=== PATIENT | male | born 1950 | race Caucasian/White ===

== ENCOUNTER → 2018-01-09 07:59 | Outpatient (CLI) | payer MEDICARE, OTHER, SELFPAY ==
--- NOTE | 2018-01-09 08:03 | DI.RAD.S_ITS ---
PROCEDURE: PAIN L INTERLAMINAR/CAUDAL INJ INDICATIONS: multi level spinal stenosis FINDINGS: Fluoroscopic spot filming was performed to verify placement of spinal needles at the midline interlaminar notch at L4-5 level, as also labeled on the films. Appropriate location(s) of the needle tip(s) was confirmed by injection of iodinated contrast. IMPRESSION: Successful L4-5 posterior midline interlaminar notch caudal injection. Dictated by: Luigi Miguel M.D. on 01/09/2018 at 9:49 Approved by: Luigi Miguel M.D. on 01/09/2018 at 9:54
[2018-01-09 09:06] VITALS: BP 138/91; PULSE 68; RESP 16; O2SAT 100
[2018-01-09 09:08] VITALS: BP 138/90; PULSE 63; RESP 11; TEMP 36.1; O2SAT 100
[2018-01-09 09:18] VITALS: BP 120/79; PULSE 71; RESP 16; O2SAT 100
[2018-01-09 09:21] VITALS: BP 123/79; PULSE 68; RESP 15; O2SAT 100
[2018-01-09 09:26] VITALS: BP 117/81; PULSE 71; RESP 17; O2SAT 100
--- NOTE | 2018-01-09 09:28 | PM.PROC.1 ---
Procedures Date/Time Date of procedure: 01/09/18 Time of procedure: 09:29
--- NOTE | 2018-01-09 09:54 | P.PCN_ITS ---
Procedures Date/Time Date of procedure: 01/09/18 Time of procedure: 09:54 General Procedure description: PATIENT: Mansoor Teixeira DATE OF : 1950 DATE OF SURGERY: 01/09/2018 PROVIDER: Nick Fields DO Operative Note PREOP DIAGNOSIS 1. HNP WITH RADICULAR FEATURES, 2. MULTILEVEL CENTRAL STENOSIS, POST OP DIAGNOSIS 1. HNP WITH RADICULAR FEATURES, 2. MULTILEVEL CENTRAL STENOSIS, PROCEDURES 1. FLUORSCOPICALLY GUIDED CONTRAST CONTROLLED INTERLAMINAR EPIDURAL STEROID INJECTION - L5/S1 PHYSICIAN: Nick Fields DO INDICATIONs: Mansoor is referred by Dr. Tapia for treatment of Bilateral Foraminal Stenosis R >L LE symptoms. FINDINGS Multilevel Central Spinal Stenosis with Nerve Root Compression DESCRIPTION OF PROCEDURE Fluoroscopically guided, contrast-controlled L5/S1 translaminar epidural steroid injection. Following denial of allergy and review of potential side effects and complications, including, but not necessarily limited to, infection, allergic reaction, local tissue breakdown, temporary as well as permanent nerve injury, paralysis, stroke and possible , the patient indicated that the patient understood and agreed to proceed. An informed consent document was signed by the patient, witnessed by a nurse, and placed in the patient's chart. Additionally, other treatment options including modalities, medications, and physical therapy were reviewed with the patient. Per the patient request, IV conscious sedation was administered via 3mg of Versed to patient comfort. The patient's vital signs were monitored throughout the procedure by both the nurse and the physician without significant fluctuation. The patient remained conversant throughout the procedure. In the prone position, following sterile prep and drape of the lumbar region, the L5/S1 translaminar space was identified fluoroscopically. The skin was anesthetized via a 25-gauge, 1.5-inch needle with 1% lidocaine solution. At this point, a 22-gauge short bevel spinal needle was atraumatically introduced and advanced under fluoroscopic guidance into the region of the L4/5 translaminar space. Depth was confirmed on lateral view. Radiological data, including multiple fluoroscopic views of the lumbar spine, reveal a spinal needle at the L5/S1 translaminar space. Lateral views then show placement of the needle in the epidural space. Subsequent views show contrast material flowing superiorly and inferiorly in the epidural space. No vascular or intrathecal uptake is observed. At this point, using loss of resistance technique with saline and air, the epidural space was entered. This was confirmed following negative aspiration with injection of approximately 1.5 cc of Isovue 200, showing excellent epidural flow without vascular or intrathecal uptake. At this point, 1 cc of 1 % lidocaine solution combined with 3 cc or 20 mg of dexamethasone and 80mg Depo medrol was injected without incident. The patient was then transferred to the recovery area where they were observed for an appropriate period of time after the injection. The patient reported a VAS score of 6 prior to the procedure and a post-procedure VAS of 0. Total Fluoroscopy Time: 11.8 seconds, 8.99 mGy Total Conscious Sedation Time: 24min POST OP INSTRUCTIONS The patient was provided a Pain Log to continue to record their response to the target-specific procedure prior to follow-up visit with their referring physician. Additionally, specific post-injection care instructions and a contact number to our office were provided if concerns arise regarding possible complications associated with the procedure are suspected. Nick Fields DO
== END ==
PROVIDERS: PCP Family Medicine; Visit Provider Physical Medicine & Rehabilitation
DX: M48.061 Spinal stenosis, lumbar region without neurogenic claudication (principal); M46.96 Unspecified inflammatory spondylopathy, lumbar region; M51.26 Other intervertebral disc displacement, lumbar region
CPT/HCPCS: 62323; 99152; J1040; J1100; J2250

== ENCOUNTER 2019-02-24 10:26 | Emergency (ER) | payer MEDICARE, OTHER, SELFPAY ==
[2019-02-24] VITALS (11 sets, daily range): BP systolic 106–159; BP diastolic 56–107; PULSE 82–111; RESP 17–31; TEMP 37.9–39.9; O2SAT 94–100
--- NOTE | 2019-02-24 10:40 | DI.RAD.S_ITS ---
PROCEDURE: XR CHEST 1V INDICATIONS: suspected sepsis TECHNIQUE: One view of the chest was acquired. COMPARISON: None. FINDINGS: Surgical changes and devices: Median sternotomy and CABG changes. Lungs and pleura: Asymmetric right hemidiaphragm eventration. Given this, the visible lung hunter are clear.. No pleural effusions or pneumothorax. Mediastinum: Mediastinal contours appear normal. Heart size is normal. Bones and chest wall: No suspicious bony lesions. Overlying soft tissues appear unremarkable. IMPRESSION: No acute cardiopulmonary disease. Post CABG. Dictated by: Jihan Torrez M.D. on 02/24/2019 at 11:12 Approved by: Jihan Torrez M.D. on 02/24/2019 at 11:13
[2019-02-24] MEDS: SODIUM CHLORIDE 0.9% 1,000 ML 1000 ML IV ×2 (11:24→14:41)
[2019-02-24 11:28] LABS: Add Manual Diff / Slide Review NO; Basophils Absolute Auto 0 /uL (0-100); Basophils Percent Auto 0.3 % (0-2); Eosinophils Absolute Auto 0 /uL (0-450); Eosinophils Percent Auto 0.2 % (2-4); Hematocrit 44.4 % (41-53); Hemoglobin 14.8 g/dL (13.5-17.5); Lymphocytes Absolute Auto 600 /uL (1100-4500); Mean Corpuscular HGB Conc 33.3 % (30-36); Mean Corpuscular Hemoglobin 30.9 PG (26-34); Mean Corpuscular Volume 92.8 fL (80-100); Monocytes Absolute Auto 300 /uL (0-900); Monocytes Percent Auto 2.7 % (3-14); Neutrophils Absolute Auto 9100 /uL (1500-7000); Neutrophils Percent Auto 90.8 % (50-75); Platelet Count 249 X10^3/uL (150-400); Red Blood Cell Count 4.78 X10^6/uL (4.5-5.9); Red Cell Distribution Width 14.1 % (11.6-14.8)
[2019-02-24 11:40] LABS: INR 0.9 (0.9-1.3); Prothrombin Time 10.9 SECONDS (10.1-12.7)
[2019-02-24 11:42] LABS: PTT Partial Thromboplastin Tim 27 SECONDS (26.4-36.2)
[2019-02-24 11:45] LABS: Lactate (Lactic Acid) 2.4 mmol/L (0.7-2.1)
[2019-02-24 11:45] LABS: Alanine Aminotransferase 19 IU/L (21-72); Albumin 4.2 g/dL (3.5-5.0); Albumin Globulin Ratio 1.3 (1.0-2.8); Alkaline Phosphatase 68 U/L (38-126); Aspartate Aminotransferase 26 IU/L (17-59); BUN Creatinine Ratio 35.7 (6-22); Bilirubin Total 0.9 mg/dL (0.2-1.3); Blood Urea Nitrogen 25 mg/dL (9-20); Calcium 9.6 mg/dL (8.4-10.2); Carbon Dioxide 25 mmol/L (22-32); Chloride 103 mmol/L (98-107); Estimated Glomerular Filt Rate > 60.0 mL/min (>60); Globulin 3.3 g/dL (1.7-4.1); Glucose 89 mg/dL (80-110); HEMOLYSIS 41 (0-50); Lipase 52 U/L (23-300); Potassium 4.4 mmol/L (3.4-5.1); Sodium 140 mmol/L (137-145); Total Protein 7.5 g/dL (6.3-8.2)
[2019-02-24 11:56] LABS: RBC Urine None Seen (0-5/HPF)
[2019-02-24 12:00] LABS: Procalcitonin 0.15 ng/mL (<0.5)
[2019-02-24 12:06] LABS: Bacteria Urine Occasional (0-1); Culture Indicated Urine Cult Not Indicated; WBC Urine 5-10/HPF (0-5/HPF)
--- NOTE | 2019-02-24 12:15 | ED.FEVER ---
HPI - Fever General Chief Complaint: Fever Stated Complaint: Has the shakes Time Seen by Provider: 02/24/19 11:46 Source: patient Mode of arrival: ambulatory Limitations: no limitations History of Present Illness HPI Narrative: Patient comes emergency department with his complaining of shaking chills this morning and just ?not feeling well?. The patient had a an episode of vomiting this morning after eating breakfast, and also had some episodes of diarrhea. He states he has mild left lower quadrant abdominal pain. No blood in his stools. Patient does have a history of diverticulitis. Patient has not had any dysuria. No cough or shortness of breath. No sore throat or ear pain. No other complaints at this time. Related Data Home Medications Medication Instructions Recorded Confirmed melatonin 3 mg tablet 3 mg PO BEDTIME PRN 01/03/18 02/24/19 omega-3 fatty acids 1,000 mg 1,000 mg PO DAILY 01/03/18 02/24/19 capsule omeprazole 20 mg capsule,delayed 20 mg PO DAILY 01/03/18 02/24/19 release pravastatin 80 mg tablet 80 mg PO BEDTIME 01/03/18 02/24/19 acetaminophen 650 mg PO PRN PRN 02/24/19 02/24/19 diclofenac sodium [Voltaren] 1 applic TOPICAL PRN PRN 02/24/19 02/24/19 prednisone 2 mg PO DAILY 02/24/19 02/24/19 prednisone 5 mg PO DAILY 02/24/19 02/24/19 Previous Rx's Medication Instructions Recorded levofloxacin [Levaquin] 500 mg PO DAILY #30 tab 02/24/19 metronidazole [Flagyl] 500 mg PO Q12H #30 tab 02/24/19 ondansetron 4 mg PO Q6H PRN #14 tab 02/24/19 Allergies Allergy/AdvReac Type Severity Reaction Status Date / Time No Known Allergies Allergy Verified 01/15/18 17:39 BRYANT Inhibitors AdvReac dry cough Verified 01/15/18 17:39 Review of Systems Constitutional Denies chills, Reports fever(s), Denies lethargy and Denies weakness Eyes Denies change in vision, Denies eye discharge, Denies irritation and Denies loss of vision ENT Ears, Nose, Mouth, and Throat: Denies change in voice, Denies neck pain and Denies sore throat Cardiovascular Denies chest pain, Denies irregular heart rhythm, Denies lightheadedness, Denies palpitations, Denies dyspnea, Denies dyspnea on exertion and Denies orthopnea Respiratory Denies cough, Denies dyspnea, Denies dyspnea on exertion and Denies wheezing Gastrointestinal Gastrointestinal: Reports abdominal pain (Left lower quadrant), Denies change in bowel habits, Reports diarrhea, Reports nausea and Reports vomiting Genitourinary Denies hematuria, Denies flank pain, Denies urinary incontinence and Denies urinary urgency Musculoskeletal Denies neck pain Integumentary/Breasts Denies pruritus, Denies erythema, Denies rash and Denies wounds Neurologic Denies confusion, Denies loss of vision and Denies weakness Psychiatric Denies anxiety, Denies confusion, Denies depression, Denies homicidal ideation and Denies suicidal ideation Endocrine Denies palpitations Hematologic/Lymphatic Denies easy bruising Allergic/Immunologic Denies wheezing [facility] Medical History Arthritis (Acute) Coronary heart disease (Acute) Heart disease (Acute) Inflammatory bowel disease (Acute) Surgical History History of surgery to heart and great vessels (Acute) Family History Mother Heart disease Stroke Heart attack Father Heart disease Melanoma Social History Smoking Status: Never smoker Family History Mother Heart disease Stroke Heart attack Father Heart disease Melanoma Social History Smoking Status: Never smoker Exam Initial Vital Signs Initial Vital Signs: Vital Signs Temperature 100.9 F H 02/24/19 10:38 Pulse Rate 99 H 02/24/19 10:38 Respiratory Rate 18 02/24/19 10:38 Blood Pressure 159/107 H 02/24/19 10:38 Pulse Oximetry 99 02/24/19 10:38 Const General: cooperative and well developed Nutritional Appearance: well nourished Orientation: alert, awake, oriented x3 and not confused [facility] Head: normocephalic and atraumatic Ears: external ears normal Nose: external nose normal and No nasal discharge Face and sinus: face symmetric and No dry mucous membranes Mouth: oral mucosae normal and moist mucous membranes Teeth and gingiva: dentition normal Eyes General: appearance normal, both eyes and all related structures Eyelids: eyelids normal Conjunctivae: conjunctivae normal Sclera: sclerae normal Pupils: PERRL EOM: EOM intact bilaterally Neck Neck: normal visual inspection, trachea midline, No lymphadenopathy, No midline deformity and No JVD Lymphatic: No lymphedema Chest Chest: normal inspection of the chest Resp Effort & Inspection: normal respiratory effort, able to speak in complete sentences, no respiratory distress and no use of accessory muscles Auscultation: clear to auscultation bilaterally, no rales, no rhonchi and no wheezes Cardio Rate: regular rate Rhythm: regular rhythm Heart Sounds: no click, no gallops, no murmurs and no rubs Pulses: normal peripheral pulses GI Inspection: non-distended Palpation: soft, no hepatosplenomegaly, No guarding, No pulsatile mass and No tender Auscultation: normal bowel sounds Back/Spine/Pelvis Back: No CVA tenderness Cervical Spine: cervical ROM normal and No pain with cervical ROM Thoracic/Lumbar Spine: thoracic and lumbar spine normal to inspection Skin General: no rashes or lesions noted, No jaundice and No petechiae Other: Skin is hot. Neuro General: alert, oriented x3, gait normal and no focal motor deficits Speech: speech normal Extrem General: full ROM, no clubbing, cyanosis or edema, no pedal edema and no calf tenderness Psych Appearance: well kempt Mental Status: mental status grossly normal Attitude: cooperative Thought Content: normal and suicidality Judgment: judgment good Course Course Narrative: Patient was treated with IV fluids, Zofran, and Tylenol, and worked up with labs, urinalysis, and chest x-ray. All of these were found to be unremarkable. Influenza test was negative. He was sent for CT scan of the abdomen and pelvis, in regard to his fever and left lower quadrant pain and tenderness, and was found to have diverticulitis without abscess or perforation. Patient was given Levaquin and Flagyl in the emergency department, and was found to be feeling much better. We have discussed home management of the symptoms, as well as the usual indications for return. Orders Ordered: Discontinued Medications Acetaminophen (Tylenol) 975 mg PO NOW ONE Stop: 02/24/19 13:03 Last Admin: 02/24/19 13:48 Dose: 975 mg Sodium Chloride (Normal Saline 0.9%) 1,000 mls @ 1,000 mls/hr IV BOLUS ONE Stop: 02/24/19 11:39 Last Infusion: 02/24/19 14:41 Dose: 0 mls/hr Admin: 02/24/19 11:24 Dose: 1,000 mls/hr Sodium Chloride (Normal Saline 0.9%) 1,000 mls @ 1,000 mls/hr IV BOLUS ONE Stop: 02/24/19 13:15 Last Infusion: 02/24/19 15:54 Dose: 0 mls/hr Admin: 02/24/19 14:41 Dose: 1,000 mls/hr Ibuprofen (Advil) 400 mg PO NOW ONE Stop: 02/24/19 16:04 Last Admin: 02/24/19 16:04 Dose: 400 mg Levofloxacin (Levaquin) 750 mg PO NOW ONE Stop: 02/24/19 14:49 Last Admin: 02/24/19 14:55 Dose: 750 mg Metronidazole (Metronidazole) 500 mg PO NOW ONE Stop: 02/24/19 14:49 Last Admin: 02/24/19 14:55 Dose: 500 mg Ondansetron HCl (Zofran) 4 mg IV NOW ONE Stop: 02/24/19 13:03 Last Admin: 02/24/19 13:42 Dose: 4 mg Vital Signs - 8 hr 02/24/19 10:38 02/24/19 11:00 02/24/19 12:00 Temperature 100.9 F H Pulse Rate 99 H 100 H 100 H Respiratory Rate 18 31 H 28 H Blood Pressure 159/107 H Blood Pressure [Left Arm] 134/77 121/68 Pulse Oximetry 99 100 95 MDM - Fever Medical Records Attestation: I reviewed the patient's medical records. Lab Data Attestation: I reviewed the patient's lab results. Result diagrams: 02/24/19 11:15 02/24/19 11:15 Lab Results 02/24/19 02/24/19 02/24/19 Range/Units 11:15 11:15 11:15 WBC 10.0 (4.5-11.0) X10^3/uL RBC 4.78 (4.5-5.9) X10^6/uL Hgb 14.8 (13.5-17.5) g/dL Hct 44.4 (41-53) % MCV 92.8 (80-100) fL MCH 30.9 (26-34) PG MCHC 33.3 (30-36) % RDW 14.1 (11.6-14.8) % Plt Count 249 (150-400) X10^3/uL Neut % (Auto) 90.8 H (50-75) % Lymph % (Auto) 6.0 L (25-40) % [place] % (Auto) 2.7 L (3-14) % Eos % (Auto) 0.2 L (2-4) % Baso % (Auto) 0.3 (0-2) % Neut # (Auto) 9100 H (2601-5457) /uL Lymph # (Auto) 600 L (4016-3263) /uL [place] # (Auto) 300 (0-900) /uL Eos # (Auto) 0 (0-450) /uL Baso # (Auto) 0 (0-100) /uL PT 10.9 (10.1-12.7) SECONDS INR 0.9 (0.9-1.3) APTT 27 (26.4-36.2) SECONDS Sodium (137-145) mmol/L Potassium (3.4-5.1) mmol/L Chloride (98-107) mmol/L Carbon Dioxide (22-32) mmol/L BUN (9-20) mg/dL Creatinine (0.66-1.25) mg/dL Estimated GFR (>60) mL/min BUN/Creatinine Ratio (6-22) Glucose (80-110) mg/dL Lactate (0.7-2.1) mmol/L Calcium (8.4-10.2) mg/dL Total Bilirubin (0.2-1.3) mg/dL AST (17-59) IU/L ALT (21-72) IU/L Alkaline Phosphatase (38-126) U/L Total Protein (6.3-8.2) g/dL Albumin (3.5-5.0) g/dL Globulin (1.7-4.1) g/dL Albumin/Globulin Ratio (1.0-2.8) Lipase (23-300) U/L Procalcitonin 0.15 (<0.5) ng/mL Urine RBC (0-5/HPF) Urine WBC (0-5/HPF) Urine Bacteria (None) Ur Culture Indicated? 02/24/19 02/24/19 02/24/19 Range/Units 11:15 11:20 11:32 WBC (4.5-11.0) X10^3/uL RBC (4.5-5.9) X10^6/uL Hgb (13.5-17.5) g/dL Hct (41-53) % MCV (80-100) fL MCH (26-34) PG MCHC (30-36) % RDW (11.6-14.8) % Plt Count (150-400) X10^3/uL Neut % (Auto) (50-75) % Lymph % (Auto) (25-40) % [place] % (Auto) (3-14) % Eos % (Auto) (2-4) % Baso % (Auto) (0-2) % Neut # (Auto) (1854-7628) /uL Lymph # (Auto) (3253-6839) /uL [place] # (Auto) (0-900) /uL Eos # (Auto) (0-450) /uL Baso # (Auto) (0-100) /uL PT (10.1-12.7) SECONDS INR (0.9-1.3) APTT (26.4-36.2) SECONDS Sodium 140 (137-145) mmol/L Potassium 4.4 (3.4-5.1) mmol/L Chloride 103 (98-107) mmol/L Carbon Dioxide 25 (22-32) mmol/L BUN 25 H (9-20) mg/dL Creatinine 0.70 (0.66-1.25) mg/dL Estimated GFR > 60.0 (>60) mL/min BUN/Creatinine Ratio 35.7 H (6-22) Glucose 89 (80-110) mg/dL Lactate 2.4 H (0.7-2.1) mmol/L Calcium 9.6 (8.4-10.2) mg/dL Total Bilirubin 0.9 (0.2-1.3) mg/dL AST 26 (17-59) IU/L ALT 19 L (21-72) IU/L Alkaline Phosphatase 68 (38-126) U/L Total Protein 7.5 (6.3-8.2) g/dL Albumin 4.2 (3.5-5.0) g/dL Globulin 3.3 (1.7-4.1) g/dL Albumin/Globulin Ratio 1.3 (1.0-2.8) Lipase 52 (23-300) U/L Procalcitonin (<0.5) ng/mL Urine RBC None seen (0-5/HPF) Urine WBC 5-10/hpf H (0-5/HPF) Urine Bacteria Occasional (0-1) (None) Ur Culture Indicated? Cult not indicated 02/24/19 Range/Units 13:58 WBC (4.5-11.0) X10^3/uL RBC (4.5-5.9) X10^6/uL Hgb (13.5-17.5) g/dL Hct (41-53) % MCV (80-100) fL MCH (26-34) PG MCHC (30-36) % RDW (11.6-14.8) % Plt Count (150-400) X10^3/uL Neut % (Auto) (50-75) % Lymph % (Auto) (25-40) % [place] % (Auto) (3-14) % Eos % (Auto) (2-4) % Baso % (Auto) (0-2) % Neut # (Auto) (3835-6932) /uL Lymph # (Auto) (2292-2674) /uL [place] # (Auto) (0-900) /uL Eos # (Auto) (0-450) /uL Baso # (Auto) (0-100) /uL PT (10.1-12.7) SECONDS INR (0.9-1.3) APTT (26.4-36.2) SECONDS Sodium (137-145) mmol/L Potassium (3.4-5.1) mmol/L Chloride (98-107) mmol/L Carbon Dioxide (22-32) mmol/L BUN (9-20) mg/dL Creatinine (0.66-1.25) mg/dL Estimated GFR (>60) mL/min BUN/Creatinine Ratio (6-22) Glucose (80-110) mg/dL Lactate 0.9 (0.7-2.1) mmol/L Calcium (8.4-10.2) mg/dL Total Bilirubin (0.2-1.3) mg/dL AST (17-59) IU/L ALT (21-72) IU/L Alkaline Phosphatase (38-126) U/L Total Protein (6.3-8.2) g/dL Albumin (3.5-5.0) g/dL Globulin (1.7-4.1) g/dL Albumin/Globulin Ratio (1.0-2.8) Lipase (23-300) U/L Procalcitonin (<0.5) ng/mL Urine RBC (0-5/HPF) Urine WBC (0-5/HPF) Urine Bacteria (None) Ur Culture Indicated? Urine Dip Bedside Urine Glucose Negative Bedside Urine Bilirubin - Negative Bedside Urine Ketone - Negative Urine Specific [place] 1.020 Bedside Urine Occult Blood ++ Bedside Urine pH 7.5 Bedside Urine Protein - Negative Bedside Urine Urobilinogen - Negative Bedside Urine Nitrite - Negative Bedside Urine Leukocytes - Negative Esterase Imaging Data CT scan - abdomen: Radiologist's impression: PROCEDURE: CT ABDOMEN PELVIS W CON INDICATIONS: LLQ abd pain, fever TECHNIQUE: After the administration of intravenous contrast, 5 mm thick sections acquired from the diaphragm to the symphysis. 5 mm coronal and sagittal reformats were acquired. For radiation dose reduction, the following was used: automated exposure control, adjustment of mA and/or kV according to patient size. COMPARISON: Outside Film, CT, CT ABDOMEN PELVIS WITHOUT CONTRAST, 10/23/2018, 10:02. [facility], CT, ABDOMEN/PELVIS WITH CONTRAST, 06/10/2009, 16:10. FINDINGS: Image quality: Excellent. ABDOMEN: Lung bases: Lung bases are clear. Heart size is normal. Solid organs: Liver is normal in size and enhancement. Gallbladder is unremarkable. Biliary system is non dilated. Pancreas enhances normally. Spleen is normal in size and enhancement. No adrenal nodules. Kidneys demonstrate normal size and enhancement, without hydronephrosis. Peritoneum and bowel: There is extensive sigmoid diverticulosis. There is mild associated diverticulitis near the rectosigmoid junction. There is diffuse thickening of the wall of the distal sigmoid. Bowel loops otherwise demonstrate normal wall thickness and caliber. No free fluid or air. No abscess cavity Nodes and vessels: No retroperitoneal or mesenteric adenopathy by size criteria. Aorta and inferior vena cava are normal in size. Miscellaneous: No ventral hernias. PELVIS: Genitourinary: Bladder wall thickness is normal. Miscellaneous: No inguinal hernias or adenopathy. Bones: No suspicious bony lesions. No vertebral body compression fractures. Degenerative change with severe canal stenosis at L4-L5. IMPRESSION: 1. Extensive sigmoid diverticulosis with mild uncomplicated superimposed acute diverticulitis. 2. Diffuse thickening of the wall of the distal sigmoid. Consider direct visualization with sigmoidoscopy or colonoscopy after acute symptoms resolve, if this patient has not had a recent colonoscopy. 3. Severe lumbar canal stenosis at L4-L5. Dictated by: Shailesh Neely M.D. on 02/24/2019 at 13:35 Approved by: Shailesh Neely M.D. on 02/24/2019 at 13:40 Chest x-ray: Radiologist's impression: [place] [id number] XRay Report Signed Patient: Mansoor Teixeira R#: [id number] : 8Acct:[id number] Age/Sex: 68 / MDate of Service: 02/24/19 Loc: ED Accession Number: [id number] Procedure: XR chest 1V Ordering Provider: Denisse Fenton MD PROCEDURE: XR CHEST 1V INDICATIONS: suspected sepsis TECHNIQUE: One view of the chest was acquired. COMPARISON: None. FINDINGS: Surgical changes and devices: Median sternotomy and CABG changes. Lungs and pleura: Asymmetric right hemidiaphragm eventration. Given this, the visible lung hunter are clear.. No pleural effusions or pneumothorax. Mediastinum: Mediastinal contours appear normal. Heart size is normal. Bones and chest wall: No suspicious bony lesions. Overlying soft tissues appear unremarkable. IMPRESSION: No acute cardiopulmonary disease. Post CABG. Dictated by: Jihan Torrez M.D. on 02/24/2019 at 11:12 Approved by: Jihan Torrez M.D. on 02/24/2019 at 11:13 Discharge Plan Departure Patient Disposition: Home Clinical Impression: Diverticulitis Discharge Date/Time: 02/24/19 16:06 Interventions: ED Discharge Assessment Last Done: 02/24/19 16:06 Instructions: DI for Diverticulitis Activity Restrictions/Additional Instructions: Your labs look great. Your CT scan shows evidence of diverticulitis, and inflammation and overgrowth of the normal bacteria in the small pouches that protrude from your large intestine. You have been started on antibiotics for this in the emergency department, and prescriptions have been sent to [facility] in [place] for the remainder. You may also take ibuprofen and/or Tylenol, as needed for fever. You may take Tylenol 650 every 4 hours, and ibuprofen 800 mg every 8 hours. Prescriptions: New metronidazole [Flagyl] 500 mg tablet 500 mg PO Q12H Qty: 30 RF: 0 levofloxacin [Levaquin] 500 mg tablet 500 mg PO DAILY Qty: 30 RF: 0 ondansetron 4 mg tablet,disintegrating 4 mg PO Q6H PRN (Reason: nausea and vomiting) Qty: 14 RF: 0 No Action prednisone 5 mg tablet 5 mg PO DAILY RF: 0 diclofenac sodium [Voltaren] 1 % gel 1 applic topical PRN PRN (Reason: pain) RF: 0 acetaminophen 325 mg Tablet 650 mg PO PRN PRN (Reason: pain or fever) RF: 0 prednisone 1 mg tablet 2 mg PO DAILY RF: 0 omega-3 fatty acids [Fish Oil Concentrate] 1,000 mg capsule 1,000 mg PO DAILY RF: 0 melatonin 3 mg tablet 3 mg PO BEDTIME PRN (Reason: Sleep) RF: 0 pravastatin 80 mg tablet 80 mg PO BEDTIME RF: 0 omeprazole 20 mg capsule,delayed release(DR/EC) 20 mg PO DAILY RF: 0 Referrals: Armin Tapia MD [Primary Care Provider] -
--- NOTE | 2019-02-24 13:02 | ED_ITS ---
HPI - Fever General Chief Complaint: Fever Stated Complaint: Has the shakes Time Seen by Provider: 02/24/19 11:46 Source: patient Mode of arrival: ambulatory Limitations: no limitations History of Present Illness HPI Narrative: Patient comes emergency department with his complaining of shaking chills this morning and just ?not feeling well?. The patient had a an episode of vomiting this morning after eating breakfast, and also had some episodes of diarrhea. He states he has mild left lower quadrant abdominal pain. No blood in his stools. Patient does have a history of diverticulitis. Patient has not had any dysuria. No cough or shortness of breath. No sore throat or ear pain. No other complaints at this time. Related Data Home Medications Medication Instructions Recorded Confirmed melatonin 3 mg tablet 3 mg PO BEDTIME PRN 01/03/18 02/24/19 omega-3 fatty acids 1,000 mg 1,000 mg PO DAILY 01/03/18 02/24/19 capsule omeprazole 20 mg capsule,delayed 20 mg PO DAILY 01/03/18 02/24/19 release pravastatin 80 mg tablet 80 mg PO BEDTIME 01/03/18 02/24/19 acetaminophen 650 mg PO PRN PRN 02/24/19 02/24/19 diclofenac sodium [Voltaren] 1 applic TOPICAL PRN PRN 02/24/19 02/24/19 prednisone 2 mg PO DAILY 02/24/19 02/24/19 prednisone 5 mg PO DAILY 02/24/19 02/24/19 Previous Rx's Medication Instructions Recorded levofloxacin [Levaquin] 500 mg PO DAILY #30 tab 02/24/19 metronidazole [Flagyl] 500 mg PO Q12H #30 tab 02/24/19 ondansetron 4 mg PO Q6H PRN #14 tab 02/24/19 Allergies Allergy/AdvReac Type Severity Reaction Status Date / Time No Known Allergies Allergy Verified 01/15/18 17:39 BRYANT Inhibitors AdvReac dry cough Verified 01/15/18 17:39 Review of Systems Constitutional Denies chills, Reports fever(s), Denies lethargy and Denies weakness Eyes Denies change in vision, Denies eye discharge, Denies irritation and Denies loss of vision ENT Ears, Nose, Mouth, and Throat: Denies change in voice, Denies neck pain and Denies sore throat Cardiovascular Denies chest pain, Denies irregular heart rhythm, Denies lightheadedness, Denies palpitations, Denies dyspnea, Denies dyspnea on exertion and Denies orthopnea Respiratory Denies cough, Denies dyspnea, Denies dyspnea on exertion and Denies wheezing Gastrointestinal Gastrointestinal: Reports abdominal pain (Left lower quadrant), Denies change in bowel habits, Reports diarrhea, Reports nausea and Reports vomiting Genitourinary Denies hematuria, Denies flank pain, Denies urinary incontinence and Denies urinary urgency Musculoskeletal Denies neck pain Integumentary/Breasts Denies pruritus, Denies erythema, Denies rash and Denies wounds Neurologic Denies confusion, Denies loss of vision and Denies weakness Psychiatric Denies anxiety, Denies confusion, Denies depression, Denies homicidal ideation and Denies suicidal ideation Endocrine Denies palpitations Hematologic/Lymphatic Denies easy bruising Allergic/Immunologic Denies wheezing [facility] Medical History Arthritis (Acute) Coronary heart disease (Acute) Heart disease (Acute) Inflammatory bowel disease (Acute) Surgical History History of surgery to heart and great vessels (Acute) Family History Mother Heart disease Stroke Heart attack Father Heart disease Melanoma Social History Smoking Status: Never smoker Family History Mother Heart disease Stroke Heart attack Father Heart disease Melanoma Social History Smoking Status: Never smoker Exam Initial Vital Signs Initial Vital Signs: Vital Signs Temperature 100.9 F H 02/24/19 10:38 Pulse Rate 99 H 02/24/19 10:38 Respiratory Rate 18 02/24/19 10:38 Blood Pressure 159/107 H 02/24/19 10:38 Pulse Oximetry 99 02/24/19 10:38 Const General: cooperative and well developed Nutritional Appearance: well nourished Orientation: alert, awake, oriented x3 and not confused [facility] Head: normocephalic and atraumatic Ears: external ears normal Nose: external nose normal and No nasal discharge Face and sinus: face symmetric and No dry mucous membranes Mouth: oral mucosae normal and moist mucous membranes Teeth and gingiva: dentition normal Eyes General: appearance normal, both eyes and all related structures Eyelids: eyelids normal Conjunctivae: conjunctivae normal Sclera: sclerae normal Pupils: PERRL EOM: EOM intact bilaterally Neck Neck: normal visual inspection, trachea midline, No lymphadenopathy, No midline deformity and No JVD Lymphatic: No lymphedema Chest Chest: normal inspection of the chest Resp Effort & Inspection: normal respiratory effort, able to speak in complete sentences, no respiratory distress and no use of accessory muscles Auscultation: clear to auscultation bilaterally, no rales, no rhonchi and no wheezes Cardio Rate: regular rate Rhythm: regular rhythm Heart Sounds: no click, no gallops, no murmurs and no rubs Pulses: normal peripheral pulses GI Inspection: non-distended Palpation: soft, no hepatosplenomegaly, No guarding, No pulsatile mass and No tender Auscultation: normal bowel sounds Back/Spine/Pelvis Back: No CVA tenderness Cervical Spine: cervical ROM normal and No pain with cervical ROM Thoracic/Lumbar Spine: thoracic and lumbar spine normal to inspection Skin General: no rashes or lesions noted, No jaundice and No petechiae Other: Skin is hot. Neuro General: alert, oriented x3, gait normal and no focal motor deficits Speech: speech normal Extrem General: full ROM, no clubbing, cyanosis or edema, no pedal edema and no calf tenderness Psych Appearance: well kempt Mental Status: mental status grossly normal Attitude: cooperative Thought Content: normal and suicidality Judgment: judgment good Course Course Narrative: Patient was treated with IV fluids, Zofran, and Tylenol, and worked up with labs, urinalysis, and chest x-ray. All of these were found to be unremarkable. Influenza test was negative. He was sent for CT scan of the abdomen and pelvis, in regard to his fever and left lower quadrant pain and tenderness, and was found to have diverticulitis without abscess or perforation. Patient was given Levaquin and Flagyl in the emergency department, and was found to be feeling much better. We have discussed home management of the symptoms, as well as the usual indications for return. Orders Ordered: Discontinued Medications Acetaminophen (Tylenol) 975 mg PO NOW ONE Stop: 02/24/19 13:03 Last Admin: 02/24/19 13:48 Dose: 975 mg Sodium Chloride (Normal Saline 0.9%) 1,000 mls @ 1,000 mls/hr IV BOLUS ONE Stop: 02/24/19 11:39 Last Infusion: 02/24/19 14:41 Dose: 0 mls/hr Admin: 02/24/19 11:24 Dose: 1,000 mls/hr Sodium Chloride (Normal Saline 0.9%) 1,000 mls @ 1,000 mls/hr IV BOLUS ONE Stop: 02/24/19 13:15 Last Infusion: 02/24/19 15:54 Dose: 0 mls/hr Admin: 02/24/19 14:41 Dose: 1,000 mls/hr Ibuprofen (Advil) 400 mg PO NOW ONE Stop: 02/24/19 16:04 Last Admin: 02/24/19 16:04 Dose: 400 mg Levofloxacin (Levaquin) 750 mg PO NOW ONE Stop: 02/24/19 14:49 Last Admin: 02/24/19 14:55 Dose: 750 mg Metronidazole (Metronidazole) 500 mg PO NOW ONE Stop: 02/24/19 14:49 Last Admin: 02/24/19 14:55 Dose: 500 mg Ondansetron HCl (Zofran) 4 mg IV NOW ONE Stop: 02/24/19 13:03 Last Admin: 02/24/19 13:42 Dose: 4 mg Vital Signs - 8 hr 02/24/19 10:38 02/24/19 11:00 02/24/19 12:00 Temperature 100.9 F H Pulse Rate 99 H 100 H 100 H Respiratory Rate 18 31 H 28 H Blood Pressure 159/107 H Blood Pressure [Left Arm] 134/77 121/68 Pulse Oximetry 99 100 95 MDM - Fever Medical Records Attestation: I reviewed the patient's medical records. Lab Data Attestation: I reviewed the patient's lab results. Result diagrams: 02/24/19 11:15 02/24/19 11:15 Lab Results 02/24/19 02/24/19 02/24/19 Range/Units 11:15 11:15 11:15 WBC 10.0 (4.5-11.0) X10^3/uL RBC 4.78 (4.5-5.9) X10^6/uL Hgb 14.8 (13.5-17.5) g/dL Hct 44.4 (41-53) % MCV 92.8 (80-100) fL MCH 30.9 (26-34) PG MCHC 33.3 (30-36) % RDW 14.1 (11.6-14.8) % Plt Count 249 (150-400) X10^3/uL Neut % (Auto) 90.8 H (50-75) % Lymph % (Auto) 6.0 L (25-40) % Garvin % (Auto) 2.7 L (3-14) % Eos % (Auto) 0.2 L (2-4) % Baso % (Auto) 0.3 (0-2) % Neut # (Auto) 9100 H (6027-4542) /uL Lymph # (Auto) 600 L (6198-5737) /uL Garvin # (Auto) 300 (0-900) /uL Eos # (Auto) 0 (0-450) /uL Baso # (Auto) 0 (0-100) /uL PT 10.9 (10.1-12.7) SECONDS INR 0.9 (0.9-1.3) APTT 27 (26.4-36.2) SECONDS Sodium (137-145) mmol/L Potassium (3.4-5.1) mmol/L Chloride (98-107) mmol/L Carbon Dioxide (22-32) mmol/L BUN (9-20) mg/dL Creatinine (0.66-1.25) mg/dL Estimated GFR (>60) mL/min BUN/Creatinine Ratio (6-22) Glucose (80-110) mg/dL Lactate (0.7-2.1) mmol/L Calcium (8.4-10.2) mg/dL Total Bilirubin (0.2-1.3) mg/dL AST (17-59) IU/L ALT (21-72) IU/L Alkaline Phosphatase (38-126) U/L Total Protein (6.3-8.2) g/dL Albumin (3.5-5.0) g/dL Globulin (1.7-4.1) g/dL Albumin/Globulin Ratio (1.0-2.8) Lipase (23-300) U/L Procalcitonin 0.15 (<0.5) ng/mL Urine RBC (0-5/HPF) Urine WBC (0-5/HPF) Urine Bacteria (None) Ur Culture Indicated? 02/24/19 02/24/19 02/24/19 Range/Units 11:15 11:20 11:32 WBC (4.5-11.0) X10^3/uL RBC (4.5-5.9) X10^6/uL Hgb (13.5-17.5) g/dL Hct (41-53) % MCV (80-100) fL MCH (26-34) PG MCHC (30-36) % RDW (11.6-14.8) % Plt Count (150-400) X10^3/uL Neut % (Auto) (50-75) % Lymph % (Auto) (25-40) % Garvin % (Auto) (3-14) % Eos % (Auto) (2-4) % Baso % (Auto) (0-2) % Neut # (Auto) (2522-5225) /uL Lymph # (Auto) (8079-6710) /uL Garvin # (Auto) (0-900) /uL Eos # (Auto) (0-450) /uL Baso # (Auto) (0-100) /uL PT (10.1-12.7) SECONDS INR (0.9-1.3) APTT (26.4-36.2) SECONDS Sodium 140 (137-145) mmol/L Potassium 4.4 (3.4-5.1) mmol/L Chloride 103 (98-107) mmol/L Carbon Dioxide 25 (22-32) mmol/L BUN 25 H (9-20) mg/dL Creatinine 0.70 (0.66-1.25) mg/dL Estimated GFR > 60.0 (>60) mL/min BUN/Creatinine Ratio 35.7 H (6-22) Glucose 89 (80-110) mg/dL Lactate 2.4 H (0.7-2.1) mmol/L Calcium 9.6 (8.4-10.2) mg/dL Total Bilirubin 0.9 (0.2-1.3) mg/dL AST 26 (17-59) IU/L ALT 19 L (21-72) IU/L Alkaline Phosphatase 68 (38-126) U/L Total Protein 7.5 (6.3-8.2) g/dL Albumin 4.2 (3.5-5.0) g/dL Globulin 3.3 (1.7-4.1) g/dL Albumin/Globulin Ratio 1.3 (1.0-2.8) Lipase 52 (23-300) U/L Procalcitonin (<0.5) ng/mL Urine RBC None seen (0-5/HPF) Urine WBC 5-10/hpf H (0-5/HPF) Urine Bacteria Occasional (0-1) (None) Ur Culture Indicated? Cult not indicated 02/24/19 Range/Units 13:58 WBC (4.5-11.0) X10^3/uL RBC (4.5-5.9) X10^6/uL Hgb (13.5-17.5) g/dL Hct (41-53) % MCV (80-100) fL MCH (26-34) PG MCHC (30-36) % RDW (11.6-14.8) % Plt Count (150-400) X10^3/uL Neut % (Auto) (50-75) % Lymph % (Auto) (25-40) % Garvin % (Auto) (3-14) % Eos % (Auto) (2-4) % Baso % (Auto) (0-2) % Neut # (Auto) (5071-4275) /uL Lymph # (Auto) (7536-1531) /uL Garvin # (Auto) (0-900) /uL Eos # (Auto) (0-450) /uL Baso # (Auto) (0-100) /uL PT (10.1-12.7) SECONDS INR (0.9-1.3) APTT (26.4-36.2) SECONDS Sodium (137-145) mmol/L Potassium (3.4-5.1) mmol/L Chloride (98-107) mmol/L Carbon Dioxide (22-32) mmol/L BUN (9-20) mg/dL Creatinine (0.66-1.25) mg/dL Estimated GFR (>60) mL/min BUN/Creatinine Ratio (6-22) Glucose (80-110) mg/dL Lactate 0.9 (0.7-2.1) mmol/L Calcium (8.4-10.2) mg/dL Total Bilirubin (0.2-1.3) mg/dL AST (17-59) IU/L ALT (21-72) IU/L Alkaline Phosphatase (38-126) U/L Total Protein (6.3-8.2) g/dL Albumin (3.5-5.0) g/dL Globulin (1.7-4.1) g/dL Albumin/Globulin Ratio (1.0-2.8) Lipase (23-300) U/L Procalcitonin (<0.5) ng/mL Urine RBC (0-5/HPF) Urine WBC (0-5/HPF) Urine Bacteria (None) Ur Culture Indicated? Urine Dip Bedside Urine Glucose Negative Bedside Urine Bilirubin - Negative Bedside Urine Ketone - Negative Urine Specific [place] 1.020 Bedside Urine Occult Blood ++ Bedside Urine pH 7.5 Bedside Urine Protein - Negative Bedside Urine Urobilinogen - Negative Bedside Urine Nitrite - Negative Bedside Urine Leukocytes - Negative Esterase Imaging Data CT scan - abdomen: Radiologist's impression: PROCEDURE: CT ABDOMEN PELVIS W CON INDICATIONS: LLQ abd pain, fever TECHNIQUE: After the administration of intravenous contrast, 5 mm thick sections acquired from the diaphragm to the symphysis. 5 mm coronal and sagittal reformats were acquired. For radiation dose reduction, the following was used: automated exposure control, adjustment of mA and/or kV according to patient size. COMPARISON: Outside Film, CT, CT ABDOMEN PELVIS WITHOUT CONTRAST, 10/23/2018, 10:02. [facility], CT, ABDOMEN/PELVIS WITH CONTRAST, 06/10/2009, 16:10. FINDINGS: Image quality: Excellent. ABDOMEN: Lung bases: Lung bases are clear. Heart size is normal. Solid organs: Liver is normal in size and enhancement. Gallbladder is unremarkable. Biliary system is non dilated. Pancreas enhances normally. Spleen is normal in size and enhancement. No adrenal nodules. Kidneys demonstrate normal size and enhancement, without hydronephrosis. Peritoneum and bowel: There is extensive sigmoid diverticulosis. There is mild associated diverticulitis near the rectosigmoid junction. There is diffuse thickening of the wall of the distal sigmoid. Bowel loops otherwise demonstrate normal wall thickness and caliber. No free fluid or air. No abscess cavity Nodes and vessels: No retroperitoneal or mesenteric adenopathy by size criteria. Aorta and inferior vena cava are normal in size. Miscellaneous: No ventral hernias. PELVIS: Genitourinary: Bladder wall thickness is normal. Miscellaneous: No inguinal hernias or adenopathy. Bones: No suspicious bony lesions. No vertebral body compression fractures. Degenerative change with severe canal stenosis at L4-L5. IMPRESSION: 1. Extensive sigmoid diverticulosis with mild uncomplicated superimposed acute diverticulitis. 2. Diffuse thickening of the wall of the distal sigmoid. Consider direct visualization with sigmoidoscopy or colonoscopy after acute symptoms resolve, if this patient has not had a recent colonoscopy. 3. Severe lumbar canal stenosis at L4-L5. Dictated by: Shailesh Neely M.D. on 02/24/2019 at 13:35 Approved by: Shailesh Neely M.D. on 02/24/2019 at 13:40 Chest x-ray: Radiologist's impression: [place] [address] XRay Report Signed Patient: Mansoor Teixeira R#: [id number] : 8Acct:[id number] Age/Sex: 68 / MDate of Service: 02/24/19 Loc: ED Accession Number: [id number] Procedure: XR chest 1V Ordering Provider: Denisse Fenton MD PROCEDURE: XR CHEST 1V INDICATIONS: suspected sepsis TECHNIQUE: One view of the chest was acquired. COMPARISON: None. FINDINGS: Surgical changes and devices: Median sternotomy and CABG changes. Lungs and pleura: Asymmetric right hemidiaphragm eventration. Given this, the visible lung hunter are clear.. No pleural effusions or pneumothorax. Mediastinum: Mediastinal contours appear normal. Heart size is normal. Bones and chest wall: No suspicious bony lesions. Overlying soft tissues appear unremarkable. IMPRESSION: No acute cardiopulmonary disease. Post CABG. Dictated by: Jihan Torrez M.D. on 02/24/2019 at 11:12 Approved by: Jihan Torrez M.D. on 02/24/2019 at 11:13 Discharge Plan Departure Patient Disposition: Home Clinical Impression: Diverticulitis Discharge Date/Time: 02/24/19 16:06 Interventions: ED Discharge Assessment Last Done: 02/24/19 16:06 Instructions: DI for Diverticulitis Activity Restrictions/Additional Instructions: Your labs look great. Your CT scan shows evidence of diverticulitis, and inf lammation and overgrowth of the normal bacteria in the small pouches that protrude from your large intestine. You have been started on antibiotics for this in the emergency department, and prescriptions have been sent to [facility] in [place] for the remainder. You may also take ibuprofen and/or Tylenol, as needed for fever. You may take Tylenol 650 every 4 hours, and ibuprofen 800 mg every 8 hours. Prescriptions: New metronidazole [Flagyl] 500 mg tablet 500 mg PO Q12H Qty: 30 RF: 0 levofloxacin [Levaquin] 500 mg tablet 500 mg PO DAILY Qty: 30 RF: 0 ondansetron 4 mg tablet,disintegrating 4 mg PO Q6H PRN (Reason: nausea and vomiting) Qty: 14 RF: 0 No Action prednisone 5 mg tablet 5 mg PO DAILY RF: 0 diclofenac sodium [Voltaren] 1 % gel 1 applic topical PRN PRN (Reason: pain) RF: 0 acetaminophen 325 mg Tablet 650 mg PO PRN PRN (Reason: pain or fever) RF: 0 prednisone 1 mg tablet 2 mg PO DAILY RF: 0 omega-3 fatty acids [Fish Oil Concentrate] 1,000 mg capsule 1,000 mg PO DAILY RF: 0 melatonin 3 mg tablet 3 mg PO BEDTIME PRN (Reason: Sleep) RF: 0 pravastatin 80 mg tablet 80 mg PO BEDTIME RF: 0 omeprazole 20 mg capsule,delayed release(DR/EC) 20 mg PO DAILY RF: 0 Referrals: Armin Tapia MD [Primary Care Provider] -
--- NOTE | 2019-02-24 13:06 | DI.CT.S_ITS ---
PROCEDURE: CT ABDOMEN PELVIS W CON INDICATIONS: LLQ abd pain, fever TECHNIQUE: After the administration of intravenous contrast, 5 mm thick sections acquired from the diaphragm to the symphysis. 5 mm coronal and sagittal reformats were acquired. For radiation dose reduction, the following was used: automated exposure control, adjustment of mA and/or kV according to patient size. COMPARISON: Outside Film, CT, CT ABDOMEN PELVIS WITHOUT CONTRAST, 10/23/2018, 10:02. [facility], CT, ABDOMEN/PELVIS WITH CONTRAST, 06/10/2009, 16:10. FINDINGS: Image quality: Excellent. ABDOMEN: Lung bases: Lung bases are clear. Heart size is normal. Solid organs: Liver is normal in size and enhancement. Gallbladder is unremarkable. Biliary system is non dilated. Pancreas enhances normally. Spleen is normal in size and enhancement. No adrenal nodules. Kidneys demonstrate normal size and enhancement, without hydronephrosis. Peritoneum and bowel: There is extensive sigmoid diverticulosis. There is mild associated diverticulitis near the rectosigmoid junction. There is diffuse thickening of the wall of the distal sigmoid. Bowel loops otherwise demonstrate normal wall thickness and caliber. No free fluid or air. No abscess cavity Nodes and vessels: No retroperitoneal or mesenteric adenopathy by size criteria. Aorta and inferior vena cava are normal in size. Miscellaneous: No ventral hernias. PELVIS: Genitourinary: Bladder wall thickness is normal. Miscellaneous: No inguinal hernias or adenopathy. Bones: No suspicious bony lesions. No vertebral body compression fractures. Degenerative change with severe canal stenosis at L4-L5. IMPRESSION: 1. Extensive sigmoid diverticulosis with mild uncomplicated superimposed acute diverticulitis. 2. Diffuse thickening of the wall of the distal sigmoid. Consider direct visualization with sigmoidoscopy or colonoscopy after acute symptoms resolve, if this patient has not had a recent colonoscopy. 3. Severe lumbar canal stenosis at L4-L5. Dictated by: Shailesh Neely M.D. on 02/24/2019 at 13:35 Approved by: Shailesh Neely M.D. on 02/24/2019 at 13:40
[2019-02-24 13:23] LABS: Reflexed Lactate in 2 Hours Y
[2019-02-24] MEDS: ONDANSETRON 4 MG/2 ML INJ IV (13:42)
[2019-02-24] MEDS: ACETAMINOPHEN 325 MG TABLET 975 MG PO (13:48)
[2019-02-24 14:14] LABS: Lactate 2HR (Lactic Acid Rflx) 0.9 mmol/L (0.7-2.1)
[2019-02-24] MEDS: metroNIDAZOLE 250 MG TABLET 500 MG PO (14:55)
[2019-02-24] MEDS: levoFLOXacin 250 MG TABLET 750 MG PO (14:55)
[2019-02-24] MEDS: IBUPROFEN 400 MG TABLET PO (16:04)
[2019-02-26 04:53] LABS: Acinetobacter baumannii Not Detected (Not Detect); E. coli Not Detected (Not Detect); Enterobacter cloacae complex Not Detected (Not Detect); Enterobacteriaceae species Not Detected (Not Detect); Enterococcus species Not Detected (Not Detect); Haemophilus influenzae Not Detected (Not Detect); KPC (carbapenem-resist gene) Not Detected (Not Detect); Listeria monocytogenes Not Detected (Not Detect); Neisseria meningitidis Not Detected (Not Detect); Proteus species Not Detected (Not Detect); Pseudomonas aeruginosa Detected (Not Detect); Serratia marcescens Not Detected (Not Detect); Staphylococcus species Not Detected (Not Detect); Streptococcus agalactiae (Gr B Not Detected (Not Detect); Streptococcus pneumonia Not Detected (Not Detect); Streptococcus pyogenes (Gr A) Not Detected (Not Detect); Streptococcus species Not Detected (Not Detect)
[2019-02-26 04:54] LABS: Candida albicans Not Detected (Not Detect); Candida glabrata Not Detected (Not Detect); Candida krusei Not Detected (Not Detect); Candida parapsilosis Not Detected (Not Detect); Candida tropicalis Not Detected (Not Detect)
== END 2019-02-24 16:06 | disposition home or self-care (01) ==
PROVIDERS: Emergency Provider Emergency Medicine; PCP Family Medicine
DX: K57.92 Diverticulitis of intestine, part unspecified, without perforation or abscess without bleeding (principal)
CPT/HCPCS: 36415; 36591; 71045; 74177; 80053; 81003; 81015; 83605; 83690; 84145; 85025; 85610; 85730; 87040; 87150; 87186; 87205; 96361; 96374; 99284; 99285; J2405

== ENCOUNTER → 2020-07-14 10:07 | Outpatient (CLI) | payer MEDICARE, OTHER, SELFPAY ==
--- NOTE | 2020-07-14 10:08 | DI.RAD.S_ITS ---
PROCEDURE: XR LUMBAR SPINE MIN 4V INDICATIONS: back pain TECHNIQUE: 5 total views of the lumbar spine were acquired, including bilateral oblique views. COMPARISON: [facility], CR, SPINE LUMB MIN 4VW, 10/03/2016, 15:05. [facility], CR, SPINE LUMB MIN 4VW, 04/13/2015, 10:23. [facility], CR, SPINE LUMB MIN 4VW, 02/24/2014, 10:29. [facility], MR, L-SPINE WITHOUT CONTRAST, 10/06/2016, 8:30. [facility], CT, CT ABDOMEN PELVIS WITH CONTRAST, 04/07/2019, 14:57. FINDINGS: Bones: Mild levoconvex scoliotic curvature is noted. No focal AP alignment abnormality is seen. 5 nonrib-bearing, lumbar type vertebral bodies are seen. No displaced fractures are seen. No suspicious lytic or blastic lesions are seen. There is at least moderate disc space narrowing seen at L4-L5. Endplate irregularity and sclerosis are seen. Vacuum disc phenomenon is seen at this level. There is mild disc space narrowing seen at L2-L3. The disc heights otherwise appear well-preserved. Lower lumbar spine facet arthropathy is seen. Age-appropriate lower thoracic spine degenerative changes are seen. Soft tissues: Overlying bowel gas pattern is normal. No suspicious soft tissue calcifications. Oblique images: No pars defects. IMPRESSION: Focal L4-L5 degenerative change is seen, which has progressed over time. Mild levoconvex lumbar scoliotic curvature. No pars defects are seen. Dictated by: Murray Lomeli M.D. on 07/14/2020 at 10:46 Approved by: Murray Lomeli M.D. on 07/14/2020 at 10:49
== END ==
PROVIDERS: PCP Family Medicine; Referring Provider Family Medicine; Visit Provider Physical Medicine & Rehabilitation
DX: M48.061 Spinal stenosis, lumbar region without neurogenic claudication (principal); M47.817 Spondylosis without myelopathy or radiculopathy, lumbosacral region; M51.36 Other intervertebral disc degeneration, lumbar region; M41.86 Other forms of scoliosis, lumbar region
CPT/HCPCS: 72110

== ENCOUNTER → 2020-09-07 09:32 | Outpatient (CLI) | payer MEDICARE, OTHER, SELFPAY ==
[2020-09-07 11:05] LABS: COVID19 -Nasal RAPID Negative (Negative)
== END ==
PROVIDERS: PCP Family Medicine; Visit Provider Physical Medicine & Rehabilitation
DX: Z20.822 Contact with and (suspected) exposure to COVID-19 (principal)
CPT/HCPCS: 87635; C9803

== ENCOUNTER 2020-09-09 13:35 | Outpatient (CLI) | payer MEDICARE, OTHER, SELFPAY ==
[2020-09-09] VITALS (9 sets, daily range): BP systolic 104–138; BP diastolic 58–74; PULSE 82–96; RESP 16–23; O2SAT 93–97
--- NOTE | 2020-09-09 13:37 | DI.RAD.S_ITS ---
PROCEDURE: PAIN L/S FACET INJ/BLK 1ST TROY COMPARISON: [facility], CR, XR LUMBAR SPINE MIN 4V, 07/14/2020, 10:11. INDICATIONS: SPONDYLOSIS FINDINGS: Fluoroscopic spot filming was performed to verify placement of spinal needles on both sides at the L4, L5, and S1 levels, as labeled on the films. Appropriate locations of the needle tips was confirmed by injection of iodinated contrast. IMPRESSION: Intraprocedural examination within normal limits. Dictated by: Murray Lomeli M.D. on 09/09/2020 at 15:59 Approved by: Murray Lomeli M.D. on 09/09/2020 at 16:00
[2020-09-09] MEDS: IOPAMIDOL 15 ML VIAL 3 ML INJ (14:37)
[2020-09-09] MEDS: fentaNYL 100 MCG/2 ML INJ 50 MCG IV (14:39)
[2020-09-09] MEDS: MIDAZOLAM 5 MG/5 ML VIAL IV (14:39)
[2020-09-09] MEDS: BUPIVACAINE 0.5% (PF) VIAL 5 ML INJ (14:39)
[2020-09-09] MEDS: LIDOCAINE 1% 20 ML 10 ML INJ (14:40)
--- NOTE | 2020-09-09 14:51 | P.PCN_ITS ---
Date/Time/Diagnoses Date of procedure: 09/09/20 Time of procedure: 14:51 Pre-procedure diagnosis: 1. FACET ARTHROPATHY Post-procedure diagnosis: same Procedure Notes Procedure: 1. BILATERAL- L4, L5 and S1 DIAGNOSTIC MB BLOCKS with LA Anesthetic Indications: Mansoor is referred by Dr. Tapia for treatment of Bilateral Axial LBP. Physician: Nick Fields Total Fluoroscopy time (seconds): 6 Total sedation minutes: 13 Complications: none Procedure in detail & Post-procedure care: DESCRIPTION OF PROCEDURE Fluoroscopically guided, contrast-controlled bilateral L4, L5 and S1 medial branch blocks with 0.5cc of 0.5% Marcaine. Following review of allergy and review of potential side effects and complications, including, but not necessarily limited to, infection, allergic reaction, local tissue breakdown, nerve injury, paralysis, stroke and possible , the patient indicated that the patient understood and agreed to proceed. An informed consent document was signed by the patient, witnessed by a nurse, and placed in the patient's chart. After review of previous anaesthesic history and IV conscious sedation the patient was deemed safe to proceed with today's procedure with IV conscious sedation as ASA class II designation. Safety time-out was performed to confirm patient ID, procedure to be performed and site of procedure. IV sedation was accomplished with a combination of 3mg of Versed and 50mcg of Fentanyl was administered by the RN after DO order, titrated to patient comfort during the course of the procedure while the patient remained responsive to all verbal commands. In the prone position, following sterile prep and drape of the lumbar region, the right L4, L5 and S1 anatomical location of the medial branch of the dorsal ramus was identified fluoroscopically. Subsequently an anesthetic skin wheal using 1% lidocaine solution was initiated at each of the anatomical spots. Subsequently then a 22-gauge 3.5-inch spinal needle was atraumatically introduced and advanced under fluoroscopic guidance at each of the corresponding sites at the right L4, L5 and S1 MB. After negative aspiration, 0.2cc of Isovue 200 was injected, confirming placement without vascular or intrathecal uptake. Subsequently then 0.5cc of 0.5% Marcaine solution was injected at each of the corresponding sites at the right L4, L5 and S1 medial branch locations. The identical procedure was replicated on the left. The patient tolerated the procedure well without signs or symptoms of complications prior to transfer to the recovery area continued monitoring without incident. Post-procedure, the patient was monitored initiating provocative activities to measure the amount of relief from block of the facetogenic pain. The patient reported a VAS of 7 prior to the procedure and a post-procedure VAS of 1. It has been a pleasure to assist in the diagnostic and therapeutic care of your patient. POST OP INSTRUCTIONS The patient was provided with a Pain Log to complete over the next several hours and subsequent days prior to the patient's follow up with the ordering physician. If the patient has special officer automat relief to the solution applied, then they may be a candidate for medial branch rhizotomy. The patient is aware, was provided, once again, with a Pain Log and will follow up with the referring physician for review and clinical correlation
== END 2020-09-09 15:10 | disposition home or self-care (01) ==
LOC: RAD 13:36
PROVIDERS: PCP Family Medicine; Referring Provider Family Medicine; Visit Provider Physical Medicine & Rehabilitation
DX: M47.817 Spondylosis without myelopathy or radiculopathy, lumbosacral region (principal); M47.816 Spondylosis without myelopathy or radiculopathy, lumbar region; M54.5 Low back pain
CPT/HCPCS: 64493; 64494; 99152; J2250; J3010

== ENCOUNTER → 2020-10-25 14:36 | Outpatient (CLI) | payer MEDICARE, OTHER, SELFPAY ==
[2020-10-25 16:28] LABS: COVID19 -Nasal RAPID Negative (Negative)
== END ==
PROVIDERS: PCP Family Medicine; Visit Provider Physical Medicine & Rehabilitation
DX: Z20.822 Contact with and (suspected) exposure to COVID-19 (principal)
CPT/HCPCS: 87635; C9803

== ENCOUNTER 2020-10-26 07:16 | Outpatient (CLI) | payer MEDICARE, OTHER, SELFPAY ==
[2020-10-26] VITALS (11 sets, daily range): BP systolic 95–110; BP diastolic 56–71; PULSE 76–88; RESP 11–17; TEMP 36.7; O2SAT 95–100
--- NOTE | 2020-10-26 07:18 | DI.RAD.S_ITS ---
PROCEDURE: PAIN L/S MED/LAT N RFA BILAT INDICATIONS: SPONDYLOSIS COMPARISON: None. FINDINGS: Fluoroscopic spot filming was performed to verify placement of spinal needles at the L4,L5 , S1 level(s), as labeled on the films. Appropriate location(s) of the needle tip(s) was confirmed by injection of iodinated contrast. Dictated by: Colton Barfield M.D. on 10/26/2020 at 10:46 Approved by: Colton Barfield M.D. on 10/26/2020 at 10:46
[2020-10-26] MEDS: fentaNYL 100 MCG/2 ML INJ 50 MCG IV (08:24)
[2020-10-26] MEDS: MIDAZOLAM 5 MG/5 ML VIAL IV (08:27)
[2020-10-26] MEDS: LIDOCAINE 1% 20 ML INJ (08:29)
[2020-10-26] MEDS: BUPIVACAINE 0.5% (PF) VIAL 5 ML INJ (08:29)
--- NOTE | 2020-10-26 09:04 | P.PCN_ITS ---
Date/Time/Diagnoses Date of procedure: 10/26/20 Time of procedure: 09:04 Pre-procedure diagnosis: 1. RECALCITRANT FACET ARTHROPATHY Post-procedure diagnosis: same Procedure Notes Procedure: 1. BILATERAL L4 AND L5 MEDIAL BRANCH RADIOFREQUENCY NEUROTOMY AND S1 DORSAL RAMUS BRANCH RADIOFREQUENCY NEUROTOMY Indications: Mansoor is referred by Dr. Tapia for treatment of facet arthropathy. Physician: Nick Fields Total Fluoroscopy time (seconds): 19 Total sedation minutes: 32 Complications: none Procedure in detail & Post-procedure care: DESCRIPTION OF PROCEDURE Bilateral L4 and L5 medial branch radiofrequency neurotomy and bilateral S1 dorsal ramus radiofrequency neurotomy under fluoroscopy with conscious sedation. The patient is well known to this clinic having undergone previous facet injections with good but temporary relief. The patient has experienced appropriate, concordant relief with previous facet and median branch blocks but the patient's pain has been recalcitrant to further conservative measures. Therefore, based upon the patient's relief and persistent symptoms, the patient is considered an appropriate candidate for facet rhizotomy. All of the patient's questions regarding the risks versus benefits of the procedure, including, but not limited to, bleeding, infection, temporary as well as lasting nerve injury, paralysis, stroke, and , as well treatment alternatives were answered to satisfaction. After obtaining informed consent, denial of pertinent drug allergies, as well as being made aware of the potential risks of bleeding, infection, spinal cord trauma, paralysis, temporary and permanent nerve damage, seizure, stroke, and possible , the patient was brought to the fluoroscopy suite and positioned prone on the fluoroscopy table. The lumbar region was prepped with Betadine and covered with a fenestrated drape in the usual sterile fashion. Appropriate monitors applied including pulse oximeter, pulse, and blood pressure for regular monitoring throughout the procedure. After review of previous anaesthesic history and IV conscious sedation the patient was deemed safe to proceed with today's procedure with IV conscious sedation as ASA class II designation. Safety time-out was performed to confirm patient ID, procedure to be performed and site of procedure. IV sedation was accomplished with a combination of 3mg of Versed and 50mcg of Fentanyl administered by the RN after DO order, titrated to patient comfort during the course of the procedure while the patient remained responsive to all verbal commands. After local infiltration using 1% lidocaine, under fluoroscopic guidance, a 10- cm RF insulated needle with a 10-mm active tip was positioned parallel to the junction of the right sacral ala and the superior articulating process where the S1 dorsal ramus resides. Needle placement was confirmed with motor stimulation of .5v on the right which produced local stimulation without radicular component. The stimulation was then increased to 2v with, once again, only local multifidus stimulation without radicular component. The needle was then removed and the identical procedure was performed along the length of the right L5 medial branch with motor stimulation at .7v on the right. The identical procedure was once again performed along the length of the right L4 medial branch with motor stimulation of .5v on the right. The medial branches were then anesthetised with 0.5% Marcaine. This was then followed by two discreet lesions performed at 80 degrees Celsius for 90 seconds each. The identical procedure was repeated on the left. The patient tolerated the procedure well without signs or symptoms of complications prior to transfer to the recovery area continued monitoring without incident. The patient was then transferred to the recovery area where they were observed for an appropriate period of time after the injection. The patient reported a VAS score of 9 prior to the procedure and a post-procedure VAS of 0. POST OP INSTRUCTIONS The patient was provided a Pain Log to continue to record the patient's response to the target-specific procedure prior to the patient's follow-up visit with the referring physician. Additionally, specific post-injection care instructions and a contact number to our office were provided if concerns arise regarding possible complications associated with the procedure are suspected.
== END 2020-10-26 09:20 | disposition home or self-care (01) ==
LOC: RAD 07:17
PROVIDERS: PCP Family Medicine; Referring Provider Family Medicine; Visit Provider Physical Medicine & Rehabilitation
DX: M47.816 Spondylosis without myelopathy or radiculopathy, lumbar region (principal); M47.817 Spondylosis without myelopathy or radiculopathy, lumbosacral region
CPT/HCPCS: 64635; 64636; 99152; 99153; J2250; J3010

== ENCOUNTER → 2020-12-26 12:59 | Outpatient (CLI) | payer MEDICARE, OTHER, SELFPAY ==
--- NOTE | 2020-12-26 13:01 | DI.MRI.S_ITS ---
PROCEDURE: MR LUMBAR SPINE WO CON INDICATIONS: Progressive low back pain status post rhizotomy TECHNIQUE: Noncontrast sagittal T1 spin echo and T2 fast echo, sagittal STIR, axial T1 and T2 fast spin echo through the lumbar spine. In cases with scoliosis, additional coronal T2 fast spin echo may be performed. COMPARISON: [facility], CR, SPINE LUMB MIN 4VW, 10/03/2016, 15:05. [facility], MR, L-SPINE WITHOUT CONTRAST, 10/06/2016, 8:30. FINDINGS: Image quality: Excellent. Alignment and Curvature: 5 lumbar type vertebral bodies are present by plain film. Mild, grade 1 retrolisthesis at L3-L4. Bone Marrow: Marrow is of normal overall signal. No acute vertebral body compression fractures. Mild reactive signal within the endplates adjacent to the L3-L4 and L4-L5 intervertebral discs. Moderate reactive signal within the endplates adjacent to the L4-L5 intervertebral disc. Spinal Cord: Conus medullaris terminates at the T12-L1 disc space level. Visualized cord demonstrates normal signal and size. Paraspinous Soft Tissues: No paravertebral masses. T12-L1: Mild disc height loss and desiccation. Mild facet and ligamentum flavum hypertrophy. Mild canal stenosis. No foraminal stenosis. No significant change. L1-L2: Mild disc height loss and desiccation. Mild diffuse disc bulge. Moderate ligamentum flavum hypertrophy bilaterally. Mild bilateral facet hypertrophy. Moderate canal stenosis. Mild bilateral foraminal stenosis. No significant change. L2-L3: Moderate disc desiccation. Mild disc height loss and diffuse disc bulge. Mild facet and ligamentum flavum hypertrophy. Mild epidural lipomatosis. Increased, severe canal stenosis. No change in moderate right foraminal stenosis. Resolved left posterolateral disc extrusion with decreased, mild left foraminal stenosis. L3-L4: Moderate disc desiccation. Mild disc height loss. Moderate diffuse disc bulge. Moderate facet and ligamentum flavum hypertrophy. Increased, severe canal stenosis. Moderate subarticular foraminal stenosis bilaterally is unchanged. L4-L5: Moderate disc height loss and desiccation. Moderate diffuse disc bulge. Moderate bilateral facet hypertrophy. Increased, severe canal stenosis. Increased, moderate to severe bilateral foraminal stenosis with mild bilateral L4 nerve root compression. L5-S1: Moderate disc height loss and desiccation. Mild diffuse disc bulge. Mild facet and ligamentum flavum hypertrophy. Mild canal stenosis. No change in mild facet moderate subarticular foraminal stenosis bilaterally. IMPRESSION: 1. Multilevel degenerative disc and facet disease, as well as ligamentum flavum hypertrophy and epidural lipomatosis. 2. Multilevel canal stenoses, worst at L2-L3 , L3-L4, and L4-L5, where there are increased, severe canal stenosis. 3. Multilevel foraminal stenoses, worst at L4-L5, where there is associated intraforaminal nerve root compression. Recommend correlation with clinical symptoms to ascertain relevance of these findings. Dictated by: Ally Ruffin M.D. on 12/27/2020 at 9:14 Approved by: Ally Ruffin M.D. on 12/27/2020 at 9:22
== END ==
PROVIDERS: PCP Family Medicine; Referring Provider Physical Medicine & Rehabilitation; Visit Provider Physical Medicine & Rehabilitation
DX: M54.5 Low back pain (principal); M48.061 Spinal stenosis, lumbar region without neurogenic claudication; M48.07 Spinal stenosis, lumbosacral region; M51.36 Other intervertebral disc degeneration, lumbar region; M51.37 Other intervertebral disc degeneration, lumbosacral region; E88.2 Lipomatosis, not elsewhere classified
CPT/HCPCS: 72148

== ENCOUNTER → 2021-03-21 08:09 | Outpatient (CLI) | payer MEDICARE, OTHER, SELFPAY ==
[2021-03-21 13:09] LABS: COVID19 -Nasal RAPID Negative (Negative)
== END ==
PROVIDERS: PCP Family Medicine; Visit Provider Physical Medicine & Rehabilitation
DX: Z20.822 Contact with and (suspected) exposure to COVID-19 (principal)
CPT/HCPCS: 87635; C9803

== ENCOUNTER 2021-03-22 07:22 | Outpatient (CLI) | payer MEDICARE, OTHER, SELFPAY ==
[2021-03-22] VITALS (7 sets, daily range): BP systolic 100–118; BP diastolic 56–82; PULSE 63–89; RESP 13–16; TEMP 36.6; O2SAT 93–98
--- NOTE | 2021-03-22 07:23 | DI.RAD.S_ITS ---
PROCEDURE: PAIN L INTERLAMINAR/CAUDAL INJ INDICATIONS: SPONDYLOSIS COMPARISON: [facility], XA, PAIN L INTERLAMINAR/CAUDAL INJ, 01/09/2018, 8:16. FINDINGS: Fluoroscopic spot filming was performed to verify placement of spinal needle at the L3-L4 level as labeled on the films. Appropriate location of the needle tip was confirmed by injection of iodinated contrast. IMPRESSION: 1. Fluoroscopic images demonstrate needle localization at the L3-L4 level. Dictated by: Gino Bonner M.D. on 03/22/2021 at 17:21 Approved by: Gino Bonner M.D. on 03/22/2021 at 17:24
[2021-03-22] MEDS: fentaNYL 100 MCG/2 ML INJ 50 MCG IV (08:25)
[2021-03-22] MEDS: MIDAZOLAM 5 MG/5 ML VIAL IV (08:25)
[2021-03-22] MEDS: IOPAMIDOL 15 ML VIAL 3 ML INJ (08:33)
[2021-03-22] MEDS: BUPIVACAINE 0.25% (PF) VIAL 2 ML INJ (08:34)
[2021-03-22] MEDS: BETAMETHASONE 30 MG/5 ML MDV 6 MG INJ (08:34)
[2021-03-22] MEDS: DEXAMETHASONE 10 MG/ML VIAL 20 MG INJ (08:34)
--- NOTE | 2021-03-22 08:41 | P.PCN_ITS ---
Date/Time/Diagnoses Date of procedure: 03/22/21 Time of procedure: 08:41 Pre-procedure diagnosis: 1. HNP WITH RADICULAR FEATURES, 2. MULTILEVEL CENTRAL STENOSIS, Post-procedure diagnosis: same Procedure Notes Procedure: 1. FLUOROSCOPICALLY GUIDED CONTRAST CONTROLLED INTERLAMINAR EPIDURAL STEROID INJECTION - L3/4 Indications: Mansoor is referred by Dr. Tapia for treatment of Bilateral Foraminal Stenosis L>R LE symptoms. Physician: Nick Fields Total Fluoroscopy time (seconds): 10 Total sedation minutes: 12 Complications: none Procedure in detail & Post-procedure care: FINDINGS Multilevel Central Spinal Stenosis with Nerve Root Compression DESCRIPTION OF PROCEDURE Fluoroscopically guided, contrast-controlled L3/4 translaminar epidural steroid injection. Following review of allergy and review of potential side effects and complications, including, but not necessarily limited to, infection, allergic reaction, local tissue breakdown, temporary as well as permanent nerve injury, paralysis, stroke and possible , the patient indicated that the patient understood and agreed to proceed. An informed consent document was signed by the patient, witnessed by a nurse, and placed in the patient's chart. Additionally, other treatment options including modalities, medications, and physical therapy were reviewed with the patient. After review of previous anaesthesic history and IV conscious sedation the patient was deemed safe to proceed with today?s procedure with IV conscious sedation as ASA class II designation. Safety time-out was performed to confirm patient ID, procedure to be performed and site of procedure. IV sedation was accomplished with a combination of 1mg of Versed and 50mcg of Fentanyl was administered by the RN after DO order, titrated to patient comfort during the course of the procedure while the patient remained responsive to all verbal commands. In the prone position, following sterile prep and drape of the lumbar region, the L3/4 translaminar space was identified fluoroscopically. The skin was anesthetized via a 25-gauge, 1.5-inch needle with 1% lidocaine solution. At this point, a 22-gauge short bevel spinal needle was atraumatically introduced and advanced under fluoroscopic guidance into the region of the L3/4 translaminar space. Depth was confirmed on lateral view. Radiological data, including multiple fluoroscopic views of the lumbar spine, reveal a spinal needle at the L3/4 translaminar space. Lateral views then show placement of the needle in the epidural space. Subsequent views show contrast material flowing superiorly and inferiorly in the epidural space. No vascular or intrathecal uptake is observed. At this point, using loss of resistance technique with saline and air, the epidural space was entered. This was confirmed following negative aspiration with injection of approximately 1.5 cc of Isovue 200, showing excellent epidural flow without vascular or intrathecal uptake. At this point, 1cc of 1% lidocaine solution combined with 3cc or 20mg of dexamethasone and 6mg of betamethasone was injected without incident. The patient tolerated the procedure well without signs or symptoms of complications prior to transfer to the recovery area continued monitoring without incident. The patient was then transferred to the recovery area where they were observed for an appropriate period of time after the injection. The patient reported a VAS score of 6 prior to the procedure and a post- procedure VAS of 0. POST OP INSTRUCTIONS The patient was provided a Pain Log to continue to record their response to the target-specific procedure prior to follow-up visit with their referring physician. Additionally, specific post-injection care instructions and a contact number to our office were provided if concerns arise regarding possible complications associated with the procedure are suspected.
== END 2021-03-22 08:56 | disposition home or self-care (01) ==
LOC: RAD 07:23
PROVIDERS: PCP Family Medicine; Referring Provider Physical Medicine & Rehabilitation; Visit Provider Physical Medicine & Rehabilitation
DX: M51.16 Intervertebral disc disorders with radiculopathy, lumbar region (principal); M48.061 Spinal stenosis, lumbar region without neurogenic claudication
CPT/HCPCS: 62323; 99152; J0702; J1100; J2250; J3010

== ENCOUNTER → 2021-05-23 09:03 | Outpatient (CLI) | payer MEDICARE, OTHER, SELFPAY ==
--- NOTE | 2021-05-23 | DI.RAD.S_ITS ---
PROCEDURE: FL BARIUM SWALLOW W SPEECH INDICATIONS: Gastro-esophageal reflux disease without esophagit COMPARISON: None. TECHNIQUE: Examination was conducted in conjunction with speech pathology per standard protocol. In the lateral projection, filming was performed of the patient swallowing. AP projection filming may also be performed with patient swallowing. COMPARISON: FINDINGS: Function: The oral preparatory phase appears normal, with proper containment. The subsequent oral propulsive phase, pharyngeal phase, and esophageal phase of swallowing also appear normal with all proffered substances. Single episode of tracheal aspiration seen with pudding consistency only. There is mild to moderate residue Morphology: No cricopharyngeal bar is identified. No cervical esophageal webs. No Zenker's diverticulum. No strictures. IMPRESSION: Tracheal aspiration as above. Dictated by: Colton Barfield M.D. on 05/23/2021 at 11:50 Approved by: Colton Barfield M.D. on 05/23/2021 at 11:54
--- NOTE | 2021-05-23 16:27 | ST.SWALLOW ---
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 Vincent Tejada Reason for Referral Dysphagia Patient Information Patient History The pt is a 71-yr-old male with c/o occasional coughing and frequent sticking sensation at base of throat when swallowing solids. Pt states this has been happening for years and has become increasingly bothersome. Was seen and referred by Dr. Tejada for further evaluation. PMHx significant for GERD. Subjective Observations The pt arrived on time and provided case history supplemental to medical records. Patient Positioning Position View Lat-A/P Imaging Lateral View Textures Administered Trials Presented Thin Liquid via Spoon,Thin Liquid via Cup,[place] Liquid via Spoon,[place] Liquid via Cup,Honey Liquid via Spoon, Dysphagia Blenderized Textures ,Regular Textures Oral Phase Source: MBSIMP (TM) (C) Bolus Specific Scoring Grid Lip Closure No Impairment (WNL) Tongue Control During Bolus Hold No Impairment (WNL) Bolus Prep/Mastication No Impairment (WNL) Bolus Transport/Lingual Motion No Impairment (WNL) A/P Lingual Propulsion Delay No Oral Residue WFL Residue Clearing No Impairment (WNL) Nasal Regurgitation No Additional Oral Phase Observations Oral Peripheral Exam: Symmetrical features WNL of strength, coordination and ROM . Pt has full natural dentition in excellent condition. No visible uvula. Soft palate elevated upon phonation. Pharyngeal Phase Source: MBSIMP (TM) (C) Bolus Specific Scoring Grid Delayed Initiation of Pharyngeal Swallow Yes: Early spillage of solids to vallecula Soft Palate Elevation No Impairment (WNL) Tongue Base Strength/Range of Motion Mild Impairment Residue Along the Tongue Base No Laryngeal Elevation No Impairment (WNL) Anterior Hyoid Movement No Impairment (WNL) Epiglottic Range of Motion No Impairment (WNL) Vallecular Residue No Laryngeal Vestibular Closure WFL Pharyngeal Stripping Wave WFL Pharyngeal Contraction Minimal Impairment Posterior Pharyngeal Wall Residue No Upper Esophageal Sphincter Opening WFL Residue in the Pyriform Sinuses Yes: Trace to mild; Increased w/ greater bolus bulk Clearance of Residue in the Pyriform WFL Sinuses Esophageal Clearance Upright Position No Impairment (WNL) Pharyngoesophageal Backflow Observed No Additional Pharyngeal Phase Observations One episode of seth penetration of honey-thick substance was observed (PAS-4) . Pt exhibited immediate sensation and ejected contrast from larynx. This occurred on a portion of the bolus that escaped to pharynx during the oral prep phase prior to swallow onset. No other penetration and no aspiration was observed. Base of tongue ROM is excellent but may be decreased in strength, as demonstrated by collection of contrast between base of tongue and pharyngeal wall at the height of the swallow. This results in minimal vallecular residue that clears with subsequent swallow and does not pose a significant aspiration risk. Osteophytes were observed at C4-C5 and C5-C6 that mildly protruded into the pharynx, modifying but not significantly impeding bolus flow through the UES. This occasionally resulted in mild- moderate residue at pyriform sinuses, right side greater than left. This also cleared with subsequent swallow. A/P View Textures Administered Trials Presented [place] Liquid via Cup, Dysphagia Blenderized Textures ,Barium Tablet A/P View Observations Pharyngeal Contraction Minimal Impairment Residue Observed Pyriform Sinus Right Additional Observations Mild right side bulging observed with pharyngeal contraction in A/P view. May contribute to mild pooling at pyriform sinuses. Cleared with subsequent swallow. No significant impact on overall swallow ability or safety but may contribute to pt's sticking sensation. Esophageal Observations Esophageal Function NTL, pudding and 13mm tablet passed to stomach without delay. Clinical Impressions Dysphagia Type Mild Pharyngeal Dysphagia Findings The pt presents with mild pharyngeal dysphagia secondary to reduced back/base of tongue strength and mild bulging of right pyriform sinus. Pharyngeal swallow may also be impacted by presence of mild osteophytes at C4-C5 and C5-C6, which modifies but does not significantly impede bolus flow. These result in trace to mild collections of bolus at vallecula and right side pyriform sinus. One episode of seth penetration of HTL (PAS-4) was observed during the oral prep phase when part of the bolus escaped to the pharynx prior to swallow onset. The pt exhibited immediate response and ejected the substance from the larynx. He otherwise exhibited good airway protection and does not appear to be at high risk of aspiration. Risk for airway intrusion may be higher when the pt is distracted. Rehabilitation Potential Excellent Patient Appropriate for Therapy Yes: Short course of therapy may be beneficial Recommendations Diet Liquids Order Thin Diet Order Regular Medication Recommendation As Tolerated Aspiration Precautions Recommended Precautions Upright at 90 Degrees, Effortful Swallow Treatment Plan Therapy Recommendations Outpatient Speech Therapy Short Term Goals 1. The pt will independently perform exercises to increase strength, coordination and ROM of swallow musculature to improve swallow efficiency and prevent pharyngeal residue and airway intrusion. Burn Table Operator Goals 1. The pt will tolerate regular textures and thin liquids with no overt s/sx of aspiration and without sticking sensation to increase safety and comfort during oral intake.
== END ==
PROVIDERS: PCP Family Medicine; Referring Provider Otolaryngology; Visit Provider Otolaryngology
DX: R05 Cough (principal); R13.12 Dysphagia, oropharyngeal phase; K21.9 Gastro-esophageal reflux disease without esophagitis
CPT/HCPCS: 74230; 92611

== ENCOUNTER → 2021-06-20 08:31 | Outpatient (CLI) | payer MEDICARE, OTHER, SELFPAY ==
[2021-06-20 14:32] LABS: COVID19 -Nasal RAPID Negative (Negative)
== END ==
PROVIDERS: PCP Family Medicine; Visit Provider Physical Medicine & Rehabilitation
DX: Z20.822 Contact with and (suspected) exposure to COVID-19 (principal)
CPT/HCPCS: 87635; C9803

== ENCOUNTER 2021-06-21 09:59 | Outpatient (CLI) | payer MEDICARE, OTHER, SELFPAY ==
[2021-06-21] VITALS (8 sets, daily range): BP systolic 103–121; BP diastolic 60–84; PULSE 74–84; RESP 8–18; TEMP 36.4; O2SAT 94–98
--- NOTE | 2021-06-21 10:02 | DI.RAD.S_ITS ---
PROCEDURE: PAIN SI JOINT INJECTION INDICATIONS: SACROILIAC DISORDER COMPARISON: [facility], XA, PAIN L/S MED/LAT N RFA BILAT, 10/26/2020, 8:27. [facility], XA, PAIN L INTERLAMINAR/CAUDAL INJ, 03/22/2021, 8:31. FINDINGS: On these intraprocedural images, there is a spinal needle seen overlying the inferior aspect of the left sacroiliac joint. Appropriate position of the tip of the needle was confirmed by injection of a small amount of iodinated contrast. IMPRESSION: Successful sacroiliac joint injection. Dictated by: Murray Lomeli M.D. on 06/21/2021 at 11:13 Approved by: Murray Lomeli M.D. on 06/21/2021 at 11:13
[2021-06-21] MEDS: MIDAZOLAM 5 MG/5 ML VIAL IV (11:21)
[2021-06-21] MEDS: fentaNYL 100 MCG/2 ML INJ 50 MCG IV (11:21)
[2021-06-21] MEDS: IOPAMIDOL 15 ML VIAL 3 ML INJ (11:30)
[2021-06-21] MEDS: BUPIVACAINE 0.5% (PF) VIAL 30 ML (11:30)
[2021-06-21] MEDS: BETAMETHASONE 30 MG/5 ML MDV 12 MG INJ (11:30)
--- NOTE | 2021-06-21 11:36 | PM.PROC.IR.1 ---
Date/Time/Diagnoses Date of procedure: 06/21/21 Time of procedure: 11:36 Pre-procedure diagnosis: Sacroiliac Joint Pain/DJD Post-procedure diagnosis: same Procedure Notes Procedure: Fluoroscopically guided contrast controlled left sacroiliac joint injection Indications: Mansoor is referred by Dr. Tapia for treatment of left sacroiliac joint DJD Physician: Nick Fields Total Fluoroscopy time (seconds): 12 Total sedation minutes: 8 Complications: none Procedure in detail & Post-procedure care: DESCRIPTION OF PROCEDURE Fluoroscopic guided, contrast controlled left sacroiliac joint injection Following review of allergies and review of potential side effects and complications, including, but not necessarily limited to, infection, allergic reaction, local tissue breakdown, temporary as well as permanent nerve injury, paralysis, stroke and possible , the patient indicated that they understood and agreed to proceed. An informed consent was signed by the patient, witnessed by a nurse, and placed in the patient's chart. Additionally, other treatment options including modalities, medications, and physical therapy were reviewed with the patient. After review of previous anaesthesic history and IV conscious sedation the patient was deemed safe to proceed with today?s procedure with IV conscious sedation as ASA class II designation. Safety time-out was performed to confirm patient ID, procedure to be performed and site of procedure. IV sedation was accomplished with a combination of 2mg of Versed and 50mcg of Fentanyl administered by the RN after DO order, titrated to patient comfort during the course of the procedure while the patient remained responsive to all verbal commands. In the prone position following sterile prep and drape of the pelvic region, the hyper lucency on in the inferior aspect of the left sacroiliac joint was identified fluoroscopically the skin was anesthetized be a 25 gauge 1 eventual with approximately 2cc of 1% lidocaine solution. At this point, a 22 gauge 3inch spinal needle was atraumatically introduced and advanced under fluoroscopic guidance into the inferior aspect of the left sacroiliac joint. Following negative aspiration, approximately 0.3cc of Isovue-300 was injected confirming intra-articular placement without vascular uptake. Radiographic data, including multiple fluoroscopic views of the pelvis, reveals a spinal needle in the left sacroiliac joint hyper lucent zone. Subsequent view show flow contrast tear superiorly and inferiorly within the joint capsule without vascular intrathecal uptake. At this point a total of 1cc or 0.5% Marcaine was combined with 1cc of 6mg of betamethasone was injected without incident. The patient tolerated the procedure well without signs or symptoms of complications prior to transfer to the recovery area for further monitoring. The patient was then transferred to the recovery area with a bur observed for an appropriate time after the injection. The patient reverted a vas score of 7 prior to the procedure and postprocedure vas of 1. POSTOP INSTRUCTIONS The patient was provided with a pain like to continue to record the patient's response to the target specific procedure prior to the patient's follow-up visit with the referring physician. Additionally, specific post injection care instructions and a contact number to our office were provided if concerns arise regarding the possible complications associated with procedure are suspected.
--- NOTE | 2021-06-21 11:55 | PC.NURSE ---
Patients EKG appeared to be Sinus Arrhythmia in the 70-80's, denies any chest pain, SOB and heart palpations. EKG appears to be dropping P waves and showing A-fib, patient denies any history of cardiac arrhythmias. Spoke with Dr Fields received order for 12 lead EKG. RT notified and performed with reading of Sinus rhythm with marked sinus arrhythmia.
--- NOTE | 2021-06-21 14:12 | PC.NURSE ---
Patient was notified that Dr Fields would like him to F/U with his PCP. Called Dr Tapia's office and fax number was give, update and 12 lead EKG sent to office for patient to f/u.
== END 2021-06-21 12:03 | disposition home or self-care (01) ==
LOC: RAD 10:00
PROVIDERS: PCP Family Medicine; Referring Provider Physical Medicine & Rehabilitation; Visit Provider Physical Medicine & Rehabilitation
DX: M53.3 Sacrococcygeal disorders, not elsewhere classified (principal); M46.1 Sacroiliitis, not elsewhere classified; I49.9 Cardiac arrhythmia, unspecified
CPT/HCPCS: 27096; 93005; J0702; J2250; J3010

== ENCOUNTER 2021-08-28 11:08 | Emergency (ER) | payer MEDICARE, OTHER, SELFPAY ==
[2021-08-28] VITALS (7 sets, daily range): BP systolic 117–145; BP diastolic 69–77; PULSE 61–79; RESP 16; TEMP 36.8; O2SAT 97–99; BMI 22.1
--- NOTE | 2021-08-28 12:35 | DI.RAD.S_ITS ---
PROCEDURE: XR HUMERUS LT 2V INDICATIONS: slipped on ice TECHNIQUE: 2 views of the humerus were acquired. COMPARISON: None. FINDINGS: Bones: No fractures or dislocations. No suspicious bony lesions. Soft tissues: No suspicious soft tissue calcifications. IMPRESSION: No acute fracture. No osseous lesion. If symptoms and/or clinical suspicion for pathology persist, further assessment with repeat, or advanced imaging (e.g., CT, MRI, or bone scan) may be helpful for further assessment. Dictated by: Ally Ruffin M.D. on 08/28/2021 at 13:00 Approved by: Ally Ruffin M.D. on 08/28/2021 at 13:01
--- NOTE | 2021-08-28 12:40 | DI.RAD.S_ITS ---
PROCEDURE: XR SHOULDER LT MIN 2V INDICATIONS: slipped on ice TECHNIQUE: 3 views of the shoulder were acquired. COMPARISON: None. FINDINGS: Bones: No fractures or dislocations. No suspicious bony lesions. Visualized ribs appear intact. Periarticular osteophyte formation at the acromioclavicular and glenohumeral joints. Soft tissues: Calcification within the rotator cuff. IMPRESSION: 1. Osteoarthritis. 2. Calcific tendinitis of the rotator cuff. 3. No acute fracture. No osseous lesion. If symptoms and/or clinical suspicion for pathology persist, further assessment with repeat, or advanced imaging (e.g., CT, MRI, or bone scan) may be helpful for further assessment. Dictated by: Ally Ruffin M.D. on 08/28/2021 at 12:59 Approved by: Ally Ruffin M.D. on 08/28/2021 at 13:00
--- NOTE | 2021-08-28 14:00 | ED_ITS ---
HPI - Extremity Injury (Upper) General Chief Complaint: Extremity Injury, Upper Stated Complaint: fell on left shoulder, pain Time Seen by Provider: 08/28/21 13:39 Source: patient Mode of arrival: Family Vehicle History of Present Illness HPI narrative: 71 year old Male history of coronary artery disease, hypertension presenting today day with left shoulder pain. He says he tripped and fell in the ice yesterday landing on his shoulder. He is unable to lift his shoulder without assistance from his right hand. He has no numbness tingling or weakness. He has been taking Tylenol for pain but he says it is not helping. He denies any head injury loss of consciousness or neck pain is noted on the left shoulder. There is 1 particular spot that hurts every time he moves. Denies Any chest pain or shortness of breath. Related Data Home Medications Medication Instructions Recorded Confirmed omeprazole 20 mg capsule,delayed 20 mg PO DAILY 01/03/18 06/13/21 release pravastatin 80 mg tablet 80 mg PO BEDTIME 01/03/18 06/13/21 acetaminophen 325 mg tablet 650 mg PO PRN PRN 02/24/19 06/13/21 melatonin 5 mg capsule 5 mg PO .qhs cap 10/29/19 06/13/21 hydrocodone 5 mg-acetaminophen 325 tab PO DAILY PRN tab 07/26/20 06/13/21 mg tablet prednisone 2.5 mg tablet 2.5 mg PO DAILY 06/13/21 06/13/21 Previous Rx's Medication Instructions Recorded celecoxib 200 mg capsule (Celebrex) 200 mg PO DAILY #90 cap 01/06/21 hydrocodone 5 mg-acetaminophen 325 1 tab PO Q6H PRN #10 tab 08/28/21 mg tablet Allergies Allergy/AdvReac Type Severity Reaction Status Date / Time BRYANT Inhibitors AdvReac dry cough Verified 08/28/21 12:42 Review of Systems Review of Systems Narrative: GENERAL: Denies chills,fever HEENT: Denies throat pain RESPIRATORY: Denies dyspnea, cough, wheezing CARDIOVASCULAR: Denies chest pain, palpitations GASTROINTESTINAL: Denies nausea, vomiting MUSCULOSKELETAL: See HPI SKIN: No rash, no laceration, no pruritus NEUROLOGIC: Denies weakness, dizziness, headache, numbness 8 point review of systems is negative except for those stated above and HPI Patient History Medical History Arthritis Cardiac arrhythmia Coronary heart disease Heart disease Inflammatory bowel disease Sacral dysfunction Spondylosis without myelopathy or radiculopathy, lumbosacral region Surgical History History of surgery to heart and great vessels Family History Mother Heart disease Stroke Heart attack Father Heart disease Melanoma Social History Smoking Status: Never smoker Smoking Status: Never smoker alcohol intake frequency: 0-2 drinks per day Substance Use Type: does not use Exam Initial Vital Signs Initial Vital Signs: Vital Signs Temperature 98.2 F 08/28/21 11:55 Pulse Rate 79 08/28/21 11:55 Respiratory Rate 16 08/28/21 11:55 Blood Pressure 142/69 H 08/28/21 11:55 Pulse Oximetry 99 08/28/21 11:55 GENERAL: Pleasant 71-year-old male HEENT: Head atraumatic,EOMI, pupils reactive, face symmetric, \ NECK: Supple no vertebral tenderness CARDIOVASCULAR: Regular rate and rhythm without murmurs, rubs or gallops. RESPIRATORY: Breath sounds equal bilaterally, no wheezes rales or rhonchi. EXTREMITIES: Normal range of motion, no clubbing or edema. Neurovascularly intact Left upper extremity pinpoint tenderness anteriorly near pectoralis insertion on humerus, no clavicle step-offs no gross bony deformity elbow able to flex extend pronate and supinate. Shoulder range of motion significantly decreased specially in flexion and abduction. NEUROLOGICAL: Alert and oriented x4. SKIN: Warm, dry, no laceration, no petechiae, no rashes or lesions. Course Orders Ordered: ED Orders 08/28/21 12:35 XR humerus LT 2V Stat 08/28/21 12:40 XR shoulder LT min 2V Stat Vital Signs Vital signs: Vital Signs - 8 hr 08/28/21 11:55 08/28/21 11:59 08/28/21 12:00 Temperature 98.2 F Pulse Rate 79 69 73 Respiratory Rate 16 Blood Pressure 142/69 H 130/69 Pulse Oximetry 99 97 97 08/28/21 12:30 08/28/21 13:00 08/28/21 13:30 Temperature Pulse Rate 67 65 61 Respiratory Rate Blood Pressure 117/74 117/74 127/72 Pulse Oximetry 98 97 98 08/28/21 14:00 Temperature Pulse Rate 69 Respiratory Rate Blood Pressure 145/77 H Pulse Oximetry 98 MDM - Extremity Injury (Upper) Imaging Data Extremity x-ray #1: Radiologist's Impression: PROCEDURE:? XR HUMERUS LT 2V ? INDICATIONS:? slipped on ice ? TECHNIQUE:? 2 views of the humerus were acquired.? ? COMPARISON:? None. ? FINDINGS:? ? Bones:? No fractures or dislocations.? No suspicious bony lesions.? ? Soft tissues:? No suspicious soft tissue calcifications.? ? IMPRESSION:? No acute fracture. No osseous lesion. If symptoms and/or clinical suspicion for pathology persist, further assessment with repeat, or advanced imaging (e.g ., CT, MRI, or bone scan) may be helpful for further assessment. ? ? Dictated by: Ally Ruffin M.D. on 08/28/2021 at 13:00 ? ? Extremity x-ray #2: Radiologist's Impression: PROCEDURE:? XR SHOULDER LT MIN 2V ? INDICATIONS:? slipped on ice ? TECHNIQUE:? 3 views of the shoulder were acquired.? ? COMPARISON:? None. ? FINDINGS:? ? Bones:? No fractures or dislocations.? No suspicious bony lesions.? Visualized ribs appear intact.? Periarticular osteophyte formation at the acromioclavicular and glenohumeral joints. ? Soft tissues:? Calcification within the rotator cuff. ? IMPRESSION:? 1. Osteoarthritis. 2. Calcific tendinitis of the rotator cuff. 3. No acute fracture. No osseous lesion. If symptoms and/or clinical suspicion for pathology persist, further assessment with repeat, or advanced imaging (e.g., CT, MRI, or bone scan) may be helpful for further assessment. ? ? Dictated by: Ally Ruffin M.D. on 08/28/2021 at 12:59 ? ? MDM Narrative Medical decision making narrative: Patient is known to have no fracture he is tender pain 1 particular area. Pr obable sprain. He really has significant decreased range of motion will put him in a sling however discussed moving shoulder frequently. Id possible outpatient MRI. Discharge Plan Departure Patient Disposition: Home Clinical Impression: Sprain of left shoulder Instructions: DI for Shoulder Sprain Activity Restrictions/Additional Instructions: *You have been diagnosed with left shoulder sprain *What to do: You may use sling however you must take arm out few times a day and shoulder joint so that it does not get frozen. If your pain is not improving over the next few weeks you may require an outpatient MRI, he is discuss this with your PCP *Continue to take medications as directed [place] 1 tablet every 6 hours as needed for severe pain *Follow up with your primary care provider in 2-3 days or call [phone] *Return to ER if you should have increasing pain, numbness, tingling, weakness or any new, worsening or concerning symptoms CONTROLLED SUBSTANCE DISCHARGE (Narcotoic/benzodiazepine/Flexeril/Phenergan) 1. You have been prescribed narcotic medications, it does have acet aminophen/Tylenol/paracetamol in it, DO NOT TAKE MORE THAN 4,00mg in 24 hours of Tylenol. TRAMADOL DOES NOT CONTAIN TYLENOL 2. Please understand that we cannot provide further refills of narcotics, benzodiazepines or controlled substances through the ED and her pain management will need to be through your provider. 3. While on these medications you cannot drive or operate heavy machinery. 4. You cannot sign legal documents or perform any duties such as this. 5. As long as you're taking opiate pain medications he should also be taking a stool softener such as Colace, Dulcolax, MiraLAX or prune juice, to help avoid constipation. Prescriptions: New hydrocodone-acetaminophen 5-325 mg tablet 1 tab PO Q6H PRN (Reason: pain) Qty: 10 0RF No Action celecoxib [Celebrex] 200 mg capsule 200 mg PO DAILY Qty: 90 2RF acetaminophen 325 mg Tablet 650 mg PO PRN PRN (Reason: pain or fever) 0RF pravastatin 80 mg tablet 80 mg PO BEDTIME 0RF omeprazole 20 mg capsule,delayed release(DR/EC) 20 mg PO DAILY 0RF melatonin 5 mg capsule 5 mg PO .qhs 0RF hydrocodone-acetaminophen 5-325 mg tablet PO DAILY PRN (Reason: pain) 0RF prednisone 2.5 mg tablet 2.5 mg PO DAILY 0RF Referrals: Armin Tapia MD [Primary Care Provider] -
== END 2021-08-28 14:26 | disposition home or self-care (01) ==
PROVIDERS: Emergency Provider Emergency Medicine; PCP Family Medicine
DX: S43.402A Unspecified sprain of left shoulder joint, initial encounter (principal); W00.0XXA Fall on same level due to ice and snow, initial encounter
CPT/HCPCS: 73030; 73060; 99283

== ENCOUNTER → 2021-10-17 10:05 | Outpatient (CLI) | payer MEDICARE, OTHER, SELFPAY ==
[2021-10-17 12:59] LABS: COVID19 -Nasal RAPID Negative (Negative)
== END ==
PROVIDERS: Family Provider Family Medicine; PCP Family Medicine; Visit Provider Physical Medicine & Rehabilitation
DX: Z20.822 Contact with and (suspected) exposure to COVID-19 (principal); Z01.812 Encounter for preprocedural laboratory examination
CPT/HCPCS: 87635; C9803

== ENCOUNTER 2021-10-18 09:43 | Outpatient (CLI) | payer MEDICARE, OTHER, SELFPAY ==
[2021-10-18] VITALS (9 sets, daily range): BP systolic 101–114; BP diastolic 58–84; PULSE 70–92; RESP 14–20; TEMP 36.6; O2SAT 95–100
--- NOTE | 2021-10-18 09:45 | DI.RAD.S_ITS ---
PROCEDURE: PAIN SI JOINT INJECTION INDICATIONS: LEFT SACROILIAC DISORDER COMPARISON: [facility], , PAIN SI JOINT INJECTION, 06/21/2021, 11:23. FINDINGS: On these intraprocedural images, there is a spinal needle seen overlying the inferior aspect of the left sacroiliac joint. Appropriate position of the tip of the needle was confirmed by injection of a small amount of iodinated contrast. IMPRESSION: Successful sacroiliac joint injection. Dictated by: Murray Lomeli M.D. on 10/18/2021 at 10:24 Approved by: Murray Lomeli M.D. on 10/18/2021 at 10:25
[2021-10-18] MEDS: MIDAZOLAM 5 MG/5 ML VIAL IV (10:24)
[2021-10-18] MEDS: BUPIVACAINE 0.5% (PF) VIAL 2 ML INJ (10:28)
[2021-10-18] MEDS: IOPAMIDOL 15 ML VIAL 3 ML INJ (10:28)
[2021-10-18] MEDS: BETAMETHASONE 30 MG/5 ML MDV 12 MG INJ (10:28)
[2021-10-18] MEDS: fentaNYL 250 MCG/5 ML INJ 50 MCG IV (10:30)
--- NOTE | 2021-10-18 10:40 | P.PCN_ITS ---
Date/Time/Diagnoses Date of procedure: 10/18/21 Time of procedure: 10:40 Pre-procedure diagnosis: Sacroiliac Joint Pain/DJD Post-procedure diagnosis: same Procedure Notes Procedure: Fluoroscopically guided contrast controlled left sacroiliac joint injection Indications: Mansoor is referred by Dr. Tapia for treatment of left sacroiliac joint DJD Physician: Nick Fields Total Fluoroscopy time (seconds): 12 Total sedation minutes: 12 Complications: none Procedure in detail & Post-procedure care: DESCRIPTION OF PROCEDURE Fluoroscopic guided, contrast controlled left sacroiliac joint injection Following review of allergies and review of potential side effects and complications, including, but not necessarily limited to, infection, allergic reaction, local tissue breakdown, temporary as well as permanent nerve injury, paralysis, stroke and possible , the patient indicated that they understood and agreed to proceed. An informed consent was signed by the patient, witnessed by a nurse, and placed in the patient's chart. Additionally, other treatment options including modalities, medications, and physical therapy were reviewed with the patient. After review of previous anaesthesic history and IV conscious sedation the patient was deemed safe to proceed with today?s procedure with IV conscious sedation as ASA class II designation. Safety time-out was performed to confirm patient ID, procedure to be performed and site of procedure. IV sedation was accomplished with a combination of 2mg of Versed and 50mcg of Fentanyl administered by the RN after DO order, titrated to patient comfort during the course of the procedure while the patient remained responsive to all verbal commands. In the prone position following sterile prep and drape of the pelvic region, the hyper lucency on in the inferior aspect of the left sacroiliac joint was identified fluoroscopically the skin was anesthetized be a 25 gauge 1 eventual with approximately 2cc of 1% lidocaine solution. At this point, a 22 gauge 3inch spinal needle was atraumatically introduced and advanced under fluoroscopic guidance into the inferior aspect of the left sacroiliac joint. Following negative aspiration, approximately 0.3cc of Isovue-300 was injected confirming intra-articular placement without vascular uptake. Radiographic data, including multiple fluoroscopic views of the pelvis, reveals a spinal needle in the left sacroiliac joint hyper lucent zone. Subsequent view show flow contrast tear superiorly and inferiorly within the joint capsule without vascular intrathecal uptake. At this point a total of 1cc or 0.5% Marcaine was combined with 1cc of 6mg of betamethasone was injected without incident. The patient tolerated the procedure well without signs or symptoms of complications prior to transfer to the recovery area for further monitoring. The patient was then transferred to the recovery area with a bur observed for an appropriate time after the injection. The patient reverted a vas score of 7 aminata or to the procedure and postprocedure vas of 1. POSTOP INSTRUCTIONS The patient was provided with a pain like to continue to record the patient's response to the target specific procedure prior to the patient's follow-up visit with the referring physician. Additionally, specific post injection care instructions and a contact number to our office were provided if concerns arise regarding the possible complications associated with procedure are suspected.
== END 2021-10-18 11:06 | disposition home or self-care (01) ==
PROVIDERS: Family Provider Family Medicine; PCP Family Medicine; Referring Provider Physical Medicine & Rehabilitation; Visit Provider Physical Medicine & Rehabilitation
DX: M53.3 Sacrococcygeal disorders, not elsewhere classified (principal); M46.1 Sacroiliitis, not elsewhere classified
CPT/HCPCS: 27096; 99152; J0702; J2250; J3010

== ENCOUNTER 2021-10-19 09:30 | Outpatient (RCR) | payer MEDICARE, OTHER, SELFPAY ==
--- NOTE | 2021-09-27 17:00 | ST.OPIE ---
Visit Care Team Role Provider Type Armin Tapia MD Family Provider Non-Staff Primary Care Provider Specialty: Medical Address: [address] [place], [address] Email: Vincent Tejada MD Attending Provider Physician Referring Provider Specialty: Ear, Nose, Throat Address: [address] [place] [address], [id number] Email: [email or web address] Speech-Language Pathology Initial Evaluation CNC CUTTING OPERATOR Clinical Swallow Evaluation Start: 09/27/21 15:30 Freq: Status: Active Protocol: Document 09/27/21 15:30 BROOKE (Rec: 09/27/21 17:00 BROOKE [id number]) Clinical Swallow Evaluation Session Time Visit Start Time 15:30 Visit Stop Time 16:35 Total Visit Minutes 65 Visit Information Visit Number Initial Evaluation Plan of Care Dates 09/27/21 - 12/25/21 Insurance Information Medicare Referral Referring Provider Dr. Vincent Tejada Reason for Referral Dysphagia Setting Assessment Location Outpatient Care Visit Type Note Type Initial evaluation Next Note Type Next Note Type Treatment Note Patient Information Identification Type Name,ID Card History Pt is a 71-yr-old male who was seen by this CNC CUTTING OPERATOR for Modified Barium Swallow Study in Apr 2021 with findings of mild pharyngeal dysphagia secondary to reduced muscle strength resulting in mild pharyngeal residue. One episode of penetration of cookie bolus to VFs prior to swallow was observed, with immediate exit. No other s/sx of aspiration were noted. Prominent osteophytes at C4-C5 and C5-C6 were observed, which did not significantly impede bolus flow. The pt then and today c/o frequent sticking sensation at base of throat and coughing with dry, scratchy textures. He denies coughing and choking d/t airway intrusion. He finds adding liquid wash to be helpful. Subjective Observations The pt arrived on time and reported that symptoms are largely unchanged since time of MBS. Reported by Patient Other Symptoms Coughing,Difficulty swallowing solids,Food gets stuck Current Diet Regular,Thin liquids Baseline Feeding Method Independent in self-feeding Patient Questionnaire Yes Type of Patient Questionnaire (e.g., EAT EAT-10 -10, MDADI, etc.) Results Total Score: 7 The pt scored 1 to 4 items ( liquids and solids take extra effort, the pleasure of eating is affected by my swallowing' I cough when I eat; and swallowing is stressful) and scored 2 to one item (When I swallow food sticks in my throat). Objective Assessment Mental Status Alert,Responsive,Cooperative Oral Integrity WFL Dentition Within normal limits Lip Function Within normal limits Observation of Lips at Rest Symmetrical Pucker Within normal limits Lip Retraction Within normal limits Alternating Pucker/Lip Retraction Within normal limits Tongue Function Within normal limits Observations of Tongue at Rest Within normal limits Tongue Protrusion Within normal limits Tongue Lateralization Within normal limits Jaw Function Within normal limits Observations of Jaw at Rest Within normal limits Jaw Opening Within normal limits Jaw Closing Within normal limits Jaw Lateralization Within normal limits Hard/Soft Palate Function Within normal limits Observations of Hard/Soft Palate Within normal limits Gag Reflex Within normal limits Nasality Within normal limits Phonation Within normal limits Respiratory Sufficiency Within normal limits Food and Liquid Trials Position During Assessment Upright (90 degrees) Liquids Trialed Thin Solids Trialed Mechanical Soft,Regular Administration Type Cup single sip,Cup consecutive sips,Self-feeding Oral Impairment Within normal limits Pharyngeal Impairment Mildly impaired Pharyngeal Phase Comments Oral trials consisted of soft cookie, dry cracker, cracker with peanut butter, and string cheese. The pt reported occasional mild sticking sensation that consistently cleared with additional swallow or liquid wash. Occ delayed mild throat clearing was noted, likely resulting from pharyngeal residue. No other overt s/sx of aspiration were observed. Fatigue/Endurance Endurance WNL Findings Swallowing Function Oropharyngeal phase dysphagia Severity of Swallow Impairment Mildly impaired Contributing Factors to Swallow Excessive pharyngeal residue Impairment Comments Mild pharyngeal residue at pyriform sinuses Prognosis Good Based on Cognitive status,Age Comment Educated pt on MBS findings orally and with video review and assessed current function with trials as indicated above . No changes in swallow function/safety appear to be present since time of MBS. Trained pt in exercises targeting airway closure, pharyngeal stripping wave, and base and back of tongue strengthening. Pt returned demonstration of all exercises , demonstrating understanding and ability to perform. Agreed to f/u in 3 wks. Impact on Safety and Functioning No limitations Comments Pt comfort with swallow is negatively impacted. Recommendations Instrumental Assessment No Swallowing Treatment Yes Frequency 2-3 visits Duration over 6 wks Recommended Solids Regular Recommended Liquids Thin Safety Precautions/Swallowing Small bites and sips when Recommendations eating,Slow rate; swallow between bites,Alternate liquids and solids Medication Recommendations As Tolerated Education Patient/Caregiver Education Described results of evaluation,Patient expressed understanding of evaluation, Patient expressed agreement with goals & treatment plans, Patient expressed understanding of safety precautions,Patient expressed understanding of feeding recommendations Goals Short-term Goals 1. The pt will follow safe swallow strategies independently to reduce risk of aspiration and increase proficiency of and comfort with swallow. 2. The pt will independently perform exercises to increase strength, coordination and ROM of swallow musculature to reduce risk of aspiration and increase comfort with swallow. Long-term Goals 1. The pt will tolerate regular textures, including dry crumbly foods, and thin liquids without overt s/sx of aspiration and without discomfort or sticking sensation.
--- NOTE | 2021-10-19 10:27 | ST.IPDYTX ---
Visit Care Team Role Provider Type Armin Tapia MD Family Provider Non-Staff Primary Care Provider Specialty: Medical Address: [address] [place], [address] Email: Vincent Tejada MD Attending Provider Physician Referring Provider Specialty: Ear, Nose, Throat Address: [facility] [place] [address], [address] Email: [email or web address] QUALITY CONTROL TECH RAW MATERIALS Dysphagia Treatment QUALITY CONTROL TECH RAW MATERIALS Dysphagia Treatment Start: 09/27/21 15:30 Freq: Status: Active Protocol: Document 10/19/21 10:20 BROOKE (Rec: 10/19/21 10:20 BROOKE [id number]) Dysphagia Treatment Session Time Visit Start Time 09:30 Visit Stop Time 10:00 Total Visit Minutes 30 Visit Information Visit Number 09/05 Plan of Care Dates 09/27/21 - 12/25/21 Insurance Information Medicare Setting Assessment Location Outpatient Care Visit Type Note Type Treatment Note Patient Information Subjective Observations Pt arrived on time. No new complaints. Reported improved attention and mindfulness with oral intake is helping. Had difficulty performing Leonel maneuver; all other exercises going well. Generally improving swallow ability with continued mild and occ difficulty with dry rough textures, leafy greens. Treatment Treatment Activities No oral trials administered today. Reviewed exercises. Trained pt in laryngeal elevation exercise using straw in place of Leonel. Pt performed easily with appropriate laryngeal elevation. All questions answered. Recommended placing utensil down between bites to reduce fast eating and increase mindfulness, and to eating cereal with yogurt vs milk to reduce sticking and scratching sensations. Pt agreeable to this. Assessment Patient Response to Treatment Good Rehab Potential Good Assessment of Improvement Pt is making good progress toward goals. Compliant with HEP. Continues with mild symptoms of pharyngeal dysphagia. Continue HEP and f/ u in 4 wks when pt returns from out of state travel. Diet Recommendations Recommendations Continue Current Diet Liquids Order Thin Diet Order Regular Medication Recommendations As Tolerated Comments Add moisture to dry textures Aspiration Precautions Recommended Precautions Upright at 90 Degrees, Alternate Liquids/Solids,Small Bites/Sips,Effortful Swallow, Double Swallow Treatment Plan Appropriate for Continued Therapy Yes Dysphagia Goals 1. The pt will follow safe swallow strategies independently to reduce risk of aspiration and increase proficiency of and comfort with swallow. 2. The pt will independently perform exercises to increase strength, coordination and ROM of swallow musculature to reduce risk of aspiration and increase comfort with swallow. 3. The pt will tolerate regular textures, including dry crumbly foods, and thin liquids without overt s/sx of aspiration and without discomfort or sticking sensation. Follow Up Plan f/u in 4 wks
--- NOTE | 2022-03-01 16:04 | ST.IPDYTX ---
Visit Care Team Role Provider Type Armin Tapia MD Family Provider Non-Staff Primary Care Provider Specialty: Medical Address: [address] [place], [address] Email: Vincent Tejada MD Attending Provider Physician Referring Provider Specialty: Ear, Nose, Throat Address: [facility] [place] [address], [address] Email: [email or web address] HEARING STENOGRAPHER Dysphagia Treatment HEARING STENOGRAPHER Dysphagia Treatment Start: 09/27/21 15:30 Freq: Status: Active Protocol: Document 03/01/22 16:02 BROOKE (Rec: 03/01/22 16:04 BROOKE [id number]) Dysphagia Treatment Visit Information Insurance Information Medicare Setting Assessment Location Outpatient Care Visit Type Note Type Discharge Summary Patient Information Subjective Observations The pt was last seen 10/19/21 at which time follow up in 4 wks was recommended. The pt has not returned and is discharged from services. Treatment Plan Dysphagia Goals 1. The pt will follow safe swallow strategies independently to reduce risk of aspiration and increase proficiency of and comfort with swallow. 2. The pt will independently perform exercises to increase strength, coordination and ROM of swallow musculature to reduce risk of aspiration and increase comfort with swallow. 3. The pt will tolerate regular textures, including dry crumbly foods, and thin liquids without overt s/sx of aspiration and without discomfort or sticking sensation.
== END 2022-03-08 12:54 ==
LOC: SP 09:30
PROVIDERS: Family Provider Family Medicine; PCP Family Medicine; Referring Provider Otolaryngology; Visit Provider Otolaryngology
DX: R13.12 Dysphagia, oropharyngeal phase (principal)
CPT/HCPCS: 92526; 92610

== ENCOUNTER 2021-12-06 09:56 | Emergency (ER) | payer MEDICARE, OTHER, SELFPAY ==
[2021-12-06] VITALS (15 sets, daily range): BP systolic 99–111; BP diastolic 55–74; PULSE 79–88; RESP 15–26; TEMP 36.7; O2SAT 98–100; BMI 21.2
--- NOTE | 2021-12-06 10:01 | DI.CT.S_ITS ---
PROCEDURE: CT HEAD/BRAIN WO CON INDICATIONS: new onset seizure vs. syncope TECHNIQUE: Noncontrast 4.5 mm thick angled axial sections acquired from the foramen magnum to the vertex, with coronal and sagittal reformats. For radiation dose reduction, the following was used: automated exposure control, adjustment of mA and/or kV according to patient size. COMPARISON: None. FINDINGS: Image quality: Excellent. CSF spaces: Basal cisterns are patent. No extra-axial fluid collections. The ventricles are symmetric in size and shape. Brain: Incidental densely calcified left parietal meningioma measuring approximately 1 cm. No intracranial bleeds or malignant masses. There is cerebral volume loss for age, with resultant ventricular and sulcal prominence. There are periventricular and deep white matter chronic small vessel ischemic changes. There is intracranial internal carotid artery atherosclerosis. Skull and face: Calvarium and visualized facial bones appear intact, without suspicious lesions. Sinuses: Extensive previous paranasal surgery. Air-fluid level in the sphenoid sinus. Visualized sinuses and mastoids are otherwise clear. IMPRESSION: 1. Acute sphenoid sinusitis. 2. Incidental 1 cm calcified meningioma. 3. No evidence acute stroke, hemorrhage, or mass. Dictated by: Shailesh Neely M.D. on 12/06/2021 at 10:33 Approved by: Shailesh Neely M.D. on 12/06/2021 at 10:35
[2021-12-06 10:07] LABS: Add Manual Diff / Slide Review NO; Basophils Absolute Auto 0 /uL (0-100); Basophils Percent Auto 0.3 % (0-2); Eosinophils Absolute Auto 300 /uL (0-450); Eosinophils Percent Auto 4.9 % (2-4); Hematocrit 38.2 % (41-53); Hemoglobin 12.7 g/dL (13.5-17.5); Lymphocytes Absolute Auto 2100 /uL (1100-4500); Mean Corpuscular HGB Conc 33.2 % (30-36); Mean Corpuscular Volume 90.4 fL (80-100); Monocytes Absolute Auto 900 /uL (0-900); Monocytes Percent Auto 13.2 % (3-14); Neutrophils Absolute Auto 3400 /uL (1500-7000); Neutrophils Percent Auto 50.6 % (50-75); Platelet Count 271 X10^3/uL (150-400); Red Blood Cell Count 4.23 X10^6/uL (4.5-5.9); Red Cell Distribution Width 13.5 % (11.6-14.8); White Blood Cell Count 6.7 X10^3/uL (4.5-11.0)
--- NOTE | 2021-12-06 10:09 | ED_ITS ---
HPI - Syncope General Chief Complaint: Syncope Stated Complaint: seizure vs syncopy Time Seen by Provider: 12/06/21 10:00 Source: patient and EMS Mode of arrival: EMS Limitations: no limitations History of Present Illness HPI narrative: 71-year-old male nonsmoker with history of arrhythmia in GI bleeding presents by EMS for evaluation of syncope versus seizure. Patient had been in his normal state of health and was up at the computer with his this morning, she reports that his head tilted back and his upper extremities were twitching, this lasted a brief period of time and he had no reported postictal or confused state. On arrival patient had a blood pressure in the 90s, IV was started and he received about 500 cc of fluid prior to his arrival. He admits that he feels much better on his arrival. He had been in his normal state of health until this morning. He denies any chest pain or shortness of breath and denies any nausea, vomiting or diarrhea. He has no recent injury, fever, chills. He did start a new medication (mirtazapine) 1st dose last night, also he decided to start taking his gabapentin again this morning, he has not taken it in quite some time. Otherwise as changes in his medications or diet Related Data Home Medications Medication Instructions Recorded Confirmed omeprazole 20 mg capsule,delayed 20 mg PO DAILY 01/03/18 10/05/21 release pravastatin 80 mg tablet 80 mg PO BEDTIME 01/03/18 10/05/21 acetaminophen 325 mg tablet 650 mg PO PRN PRN 02/24/19 10/05/21 melatonin 5 mg capsule 5 mg PO .qhs cap 10/29/19 10/05/21 hydrocodone 5 mg-acetaminophen 325 tab PO DAILY PRN tab 07/26/20 10/05/21 mg tablet prednisone 2.5 mg tablet 2 mg PO QWEEK tab 10/05/21 10/05/21 Previous Rx's Medication Instructions Recorded hydrocodone 5 mg-acetaminophen 325 1 tab PO Q6H PRN #10 tab 08/28/21 mg tablet celecoxib 200 mg capsule (Celebrex) 200 mg PO DAILY #90 cap 09/26/21 Allergies Allergy/AdvReac Type Severity Reaction Status Date / Time BRYANT Inhibitors AdvReac dry cough Verified 12/06/21 10:06 Review of Systems Review of Systems Narrative: GENERAL: Denies chills, fatigue, malaise, fever, sweats. HEENT: Denies sinus pain, ear pain, sore throat, difficulty swallowing, dizziness. RESPIRATORY: Denies dyspnea, cough, wheezing, hemoptysis, sputum. CARDIOVASCULAR: See HPI GASTROINTESTINAL: Denies nausea, vomiting, abdominal pain, diarrhea, constipation, melena. : Denies dysuria, frequency, incontinence, hematuria, urinary retention. MUSCULOSKELETAL: denies weakness, joint pain, or bony pain SKIN: Denies rash, skin lesions, or other NEUROLOGIC: Denies weakness, headache, numbness, change in speech, confusion, seizures, incoordination. PSYCHIATRIC: No concerning psychosocial issues. 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 Well-developed patient, in mild distress. HEAD: Atraumatic. Normocephalic. EYES: Pupils equal round and reactive. Extraocular motions intact. No scleral icterus. No injection or drainage. ENT: Nose without bleeding, purulent drainage. Throat without erythema, tonsillar hypertrophy or exudate. Airway patent. NECK: Trachea midline. Non tender CARDIOVASCULAR: Regular rate and rhythm without murmurs, gallops, or rubs. RESPIRATORY: Clear to auscultation. Breath sounds equal bilaterally. No wheezes, rales, or rhonchi. GASTROINTESTINAL: Abdomen soft, non-tender, nondistended. EXTREMITIES: No edema or joint tenderness. BACK: Nontender without deformity or crepitance. No flank tenderness. NEURO: AOx3. SKIN: No rash or erythema of visible areas Initial Vital Signs Initial Vital Signs: Vital Signs Temperature 98.0 F 12/06/21 09:55 Pulse Rate 81 12/06/21 09:55 Respiratory Rate 18 12/06/21 09:55 Blood Pressure 104/58 L 12/06/21 09:55 Pulse Oximetry 99 12/06/21 09:55 Course Orders Ordered: ED Orders 12/06/21 12:30 Urine Culture Stat Urine Microscopic Stat Discontinued Medications Sodium Chloride (Normal Saline 0.9%) 1,000 mls @ 1,000 mls/hr IV BOLUS ONE Stop: 12/06/21 10:59 Last Infusion: 12/06/21 11:56 Dose: 0 mls/hr Documented by: Admin: 12/06/21 10:11 Dose: 1,000 mls/hr Documented by: KIET Reevaluation(s) Reevaluation #1: Patient has very little symptoms for the duration of his visit, he is observed for multiple hours, feels even better after completion of fluids. Does well with orthostatics and ambulation trial Vital Signs Vital signs: Vital Signs - 8 hr 12/06/21 11:45 12/06/21 13:36 Pulse Rate 86 83 Respiratory Rate 23 18 Blood Pressure 111/74 111/74 Pulse Oximetry 99 100 MDM - Syncope Lab Data Result diagrams: 12/06/21 09:55 12/06/21 09:55 Labs: Lab Results 12/06/21 12/06/21 12/06/21 Range/Units 09:55 09:55 09:55 WBC 6.7 (4.5-11.0) X10^3/uL RBC 4.23 L (4.5-5.9) X10^6/uL Hgb 12.7 L (13.5-17.5) g/dL Hct 38.2 L (41-53) % MCV 90.4 (80-100) fL MCH 30.0 (26-34) PG MCHC 33.2 (30-36) % RDW 13.5 (11.6-14.8) % Plt Count 271 (150-400) X10^3/uL Neut % (Auto) 50.6 (50-75) % Lymph % (Auto) 31.0 (25-40) % [place] % (Auto) 13.2 (3-14) % Eos % (Auto) 4.9 H (2-4) % Baso % (Auto) 0.3 (0-2) % Neut # (Auto) 3400 (7516-1769) /uL Lymph # (Auto) 2100 (5428-5482) /uL [place] # (Auto) 900 (0-900) /uL Eos # (Auto) 300 (0-450) /uL Baso # (Auto) 0 (0-100) /uL PT 12.6 (10.1-12.7) SECONDS INR 1.1 (0.9-1.3) Sodium 131 L (137-145) mmol/L Potassium 4.0 (3.4-5.1) mmol/L Chloride 98 (98-107) mmol/L Carbon Dioxide 24 (22-32) mmol/L BUN 13 (9-20) mg/dL Creatinine 0.63 L (0.66-1.25) mg/dL Estimated GFR > 60.0 (>60) mL/min BUN/Creatinine Ratio 20.6 (6-22) Glucose 177 H (80-110) mg/dL Lactate (0.7-2.1) mmol/L Calcium 8.9 (8.4-10.2) mg/dL Magnesium 1.7 (1.6-2.3) mg/dL Total Bilirubin 0.8 (0.2-1.3) mg/dL AST 23 (17-59) IU/L ALT 15 (<50) IU/L Alkaline Phosphatase 77 (38-126) U/L Total Creatine Kinase 49 L (55-170) U/L CK-MB (CK-2) TNP CK-MB (CK-2) Rel Index TNP Troponin I 0.025 (0.01-0.034) ng/mL NT-Pro-B Natriuret Pep 1480 H (<125) pg/mL Total Protein 6.9 (6.3-8.2) g/dL Albumin 3.6 (3.5-5.0) g/dL Globulin 3.3 (1.7-4.1) g/dL Albumin/Globulin Ratio 1.1 (1.0-2.8) Lipase 37 (23-300) U/L Urine RBC (0-5/HPF) Urine WBC (0-5/HPF) Ur Squamous Epith Cells (0-5/HPF) Amorphous Sediment Urine Bacteria (None) Ur Culture Indicated? 12/06/21 12/06/21 Range/Units 09:55 12:30 WBC (4.5-11.0) X10^3/uL RBC (4.5-5.9) X10^6/uL Hgb (13.5-17.5) g/dL Hct (41-53) % MCV (80-100) fL MCH (26-34) PG MCHC (30-36) % RDW (11.6-14.8) % Plt Count (150-400) X10^3/uL Neut % (Auto) (50-75) % Lymph % (Auto) (25-40) % [place] % (Auto) (3-14) % Eos % (Auto) (2-4) % Baso % (Auto) (0-2) % Neut # (Auto) (0383-4215) /uL Lymph # (Auto) (2588-8501) /uL [place] # (Auto) (0-900) /uL Eos # (Auto) (0-450) /uL Baso # (Auto) (0-100) /uL PT (10.1-12.7) SECONDS INR (0.9-1.3) Sodium (137-145) mmol/L Potassium (3.4-5.1) mmol/L Chloride (98-107) mmol/L Carbon Dioxide (22-32) mmol/L BUN (9-20) mg/dL Creatinine (0.66-1.25) mg/dL Estimated GFR (>60) mL/min BUN/Creatinine Ratio (6-22) Glucose (80-110) mg/dL Lactate 2.0 (0.7-2.1) mmol/L Calcium (8.4-10.2) mg/dL Magnesium (1.6-2.3) mg/dL Total Bilirubin (0.2-1.3) mg/dL AST (17-59) IU/L ALT (<50) IU/L Alkaline Phosphatase (38-126) U/L Total Creatine Kinase (55-170) U/L CK-MB (CK-2) CK-MB (CK-2) Rel Index Troponin I (0.01-0.034) ng/mL NT-Pro-B Natriuret Pep (<125) pg/mL Total Protein (6.3-8.2) g/dL Albumin (3.5-5.0) g/dL Globulin (1.7-4.1) g/dL Albumin/Globulin Ratio (1.0-2.8) Lipase (23-300) U/L Urine RBC 0-1/hpf (0-5/HPF) Urine WBC None seen (0-5/HPF) Ur Squamous Epith Cells 0-1 /hpf (0-5/HPF) Amorphous Sediment 1+ Urine Bacteria None seen (None) Ur Culture Indicated? Culture not indicate Urine Dip Bedside Urine Glucose Negative Bedside Urine Bilirubin - Negative Bedside Urine Ketone - Negative Urine Specific [place] 1.015 Bedside Urine Occult Blood + Bedside Urine pH 6.0 Bedside Urine Protein - Negative Bedside Urine Urobilinogen - Negative Bedside Urine Nitrite - Negative Bedside Urine Leukocytes - Negative Esterase Imaging Data CT scan - head: Radiologist's Impression: Launch?[place] [address] CT Scan Report Signed Patient: Mansoor Teixeira MR#: [id number] : 1950 Acct:[id number] Age/Sex: 71 / M Date of Service: 12/06/21 Loc: ED Accession Number: [id number] ?? Procedure: CT head/brain wo con Ordering Provider: Omar Lancaster D.O. PROCEDURE:? CT HEAD/BRAIN WO CON ? INDICATIONS:? new onset seizure vs. syncope ? TECHNIQUE:? Noncontrast 4.5 mm thick angled axial sections acquired from the foramen magnum to the vertex, with coronal and sagittal reformats.? For radiation dose reduction, the following was used:? automated exposure control, adjustment of mA and/or kV according to patient size.? ? COMPARISON:? None. ? FINDINGS:? Image quality:? Excellent.? ? CSF spaces:? Basal cisterns are patent.? No extra-axial fluid collections.? The ventricles are symmetric in size and shape.? ? Brain:? Incidental densely calcified left parietal meningioma measuring appr oximately 1 cm. No intracranial bleeds or malignant masses.? There is cerebral volume loss for age, with resultant ventricular and sulcal prominence.? There are periventricular and deep white matter chronic small vessel ischemic changes.? There is intracranial internal carotid artery atherosclerosis.? ? Skull and face:? Calvarium and visualized facial bones appear intact, without suspicious lesions.? ? Sinuses:? Extensive previous paranasal surgery.? Air-fluid level in the sphenoid sinus.? Visualized sinuses and mastoids are otherwise clear.? ? IMPRESSION:? ? 1. Acute sphenoid sinusitis. ? 2. Incidental 1 cm calcified meningioma. ? 3. No evidence acute stroke, hemorrhage, or mass.? ? ? Dictated by: Shailesh Neely M.D. on 12/06/2021 at 10:33 ? ? Approved by: Shailesh Neely M.D. on 12/06/2021 at 10:35 MDM Narrative Medical decision making narrative: Patient presents with brief unresponsive episodes and some twitching of his upper extremities this morning. Multiple diagnoses considered including seizure versus syncope versus arrhythmia versus other. Head CT is unremarkable, patient has excellent response to fluids. Seizure considered unlikely given lack of history, no abnormal findings on CT, no postictal phase. It seems likely that starting a new medication (mirtazapine) while adding gabapentin which he had not taken in quite some time place significant role if not the entirety of today's episode. He is encouraged to not take these medications until he follows up with his doctor which is already scheduled for a few days from now. He is given extensive return precautions and questions have been answered apparent satisfaction. Discharge Plan Departure Patient Disposition: Home Clinical Impression: Syncope, Polypharmacy, Acute dehydration Instructions: DI for Syncope in Adults (Fainting) Activity Restrictions/Additional Instructions: *You have been diagnosed with [syncope. As we discussed the history and physical exam as well as addition of new medications would suggest these were s yncopal episodes as opposed to seizure or other. Also, physical exam, labs and imaging are also very reassuring. It seems very likely that this was related to starting mirtazapine and gabapentin *What to do: * please do not take gabapentin or mirtazapine until your follow-up, otherwise continue to take your regular medications as directed. [ ] New medication prescriptions sent to your pharmacy: [ ] [ ] New medication written as a paper prescription [ x] No new medications given *Please follow up with your primary care provider in 2-3 days, call for an appo intment. Let them know you were seen in the Emergency Department and that we ask that you be seen in follow up. We will electronically transmit a record of today's note if your PCP is in our system *If you do not have a primary care provider please contact the [facility] Resource line at [phone]. They will ask some questions about your medical history and help get you set up with a doctor in the community. *Return to Emergency Department if you should have any new, worsening or conc erning symptoms, such as [fever greater than 101 F, shaking chills, worsening pain, persistent vomiting or other bothersome symptoms] Prescriptions: No Action celecoxib [Celebrex] 200 mg capsule 200 mg PO DAILY Qty: 90 2RF acetaminophen 325 mg Tablet 650 mg PO PRN PRN (Reason: pain or fever) 0RF hydrocodone-acetaminophen 5-325 mg tablet 1 tab PO Q6H PRN (Reason: pain) Qty: 10 0RF pravastatin 80 mg tablet 80 mg PO BEDTIME 0RF omeprazole 20 mg capsule,delayed release(DR/EC) 20 mg PO DAILY 0RF melatonin 5 mg capsule 5 mg PO .qhs 0RF hydrocodone-acetaminophen 5-325 mg tablet PO DAILY PRN (Reason: pain) 0RF prednisone 2.5 mg tablet 2 mg PO QWEEK 0RF Referrals: Armin Tapia MD [Primary Care Provider] -
[2021-12-06] MEDS: SODIUM CHLORIDE 0.9% 1,000 ML 1000 ML IV (10:11)
[2021-12-06 10:12] LABS: INR 1.1 (0.9-1.3); Prothrombin Time 12.6 SECONDS (10.1-12.7)
[2021-12-06 10:19] LABS: Alanine Aminotransferase 15 IU/L (<50); Albumin 3.6 g/dL (3.5-5.0); Albumin Globulin Ratio 1.1 (1.0-2.8); Alkaline Phosphatase 77 U/L (38-126); Aspartate Aminotransferase 23 IU/L (17-59); BUN Creatinine Ratio 20.6 (6-22); Bilirubin Total 0.8 mg/dL (0.2-1.3); Blood Urea Nitrogen 13 mg/dL (9-20); Calcium 8.9 mg/dL (8.4-10.2); Carbon Dioxide 24 mmol/L (22-32); Chloride 98 mmol/L (98-107); Creatine Kinase 49 U/L (55-170); Estimated Glomerular Filt Rate > 60.0 mL/min (>60); Globulin 3.3 g/dL (1.7-4.1); Glucose 177 mg/dL (80-110); HEMOLYSIS < 15 (0-50); Lipase 37 U/L (23-300); Magnesium 1.7 mg/dL (1.6-2.3); Sodium 131 mmol/L (137-145); Total Protein 6.9 g/dL (6.3-8.2)
[2021-12-06 10:31] LABS: NT-proBNP (BNP-Adult 18+) 1480 pg/mL (<125); Troponin I 0.025 ng/mL (0.01-0.034)
--- NOTE | 2021-12-06 10:32 | PC.NURSE ---
right eye with blood on sclera . states it happened when he coughed.
[2021-12-06 12:58] LABS: Amorphous Sediment Urine 1+; Bacteria Urine None Seen; RBC Urine 0-1/HPF (0-5/HPF); Squamous Epithelial Cell Urine 0-1 /HPF (0-5/HPF); WBC Urine None Seen (0-5/HPF)
== END 2021-12-06 13:37 | disposition home or self-care (01) ==
PROVIDERS: Emergency Provider Emergency Medicine; Family Provider Family Medicine; PCP Family Medicine
DX: R55 Syncope and collapse (principal); Z79.899 Other long term (current) drug therapy; E86.0 Dehydration
CPT/HCPCS: 36415; 70450; 80053; 81003; 81015; 82550; 83605; 83690; 83735; 83880; 84484; 85025; 85610; 87086; 93005; 93010; 96360; 96361; 99284

== ENCOUNTER → 2021-12-29 10:50 | Outpatient (CLI) | payer MEDICARE, OTHER, SELFPAY ==
--- NOTE | 2021-12-29 10:52 | DI.RAD.S_ITS ---
PROCEDURE: XR LUMBAR SPINE MIN 4V INDICATIONS: BACK PAIN TECHNIQUE: 5 views of the lumbar spine were acquired, including bilateral oblique views. COMPARISON: [facility], , XR LUMBAR SPINE MIN 4V, 07/14/2020, 10:11. FINDINGS: Bones: 5 nonrib-bearing vertebrae are present. There is normal bony alignment. No vertebral body compression fractures. No suspicious bony lesions. The pars interarticularis are not well visualized. Multilevel disc space narrowing and endplate osteophyte formation throughout the mid and lower lumbar spine. Facet hypertrophy throughout the mid and lower lumbar spine. Soft tissues: Overlying bowel gas pattern is normal. No suspicious soft tissue calcifications. IMPRESSION: 1. Multilevel degenerative disc and facet disease. 2. No acute fracture. No osseous lesion. If symptoms and/or clinical suspicion for pathology persist, further assessment with repeat, or advanced imaging (e.g., CT, MRI, or bone scan) may be helpful for further assessment. Dictated by: Ally Ruffin M.D. on 12/29/2021 at 11:38 Approved by: Ally Ruffin M.D. on 12/29/2021 at 11:39
== END ==
PROVIDERS: Family Provider Family Medicine; PCP Family Medicine; Referring Provider Physical Medicine & Rehabilitation; Visit Provider Physical Medicine & Rehabilitation
DX: M47.817 Spondylosis without myelopathy or radiculopathy, lumbosacral region (principal); M51.36 Other intervertebral disc degeneration, lumbar region; M48.061 Spinal stenosis, lumbar region without neurogenic claudication; M51.26 Other intervertebral disc displacement, lumbar region
CPT/HCPCS: 72110

== ENCOUNTER → 2022-05-15 13:47 | Outpatient (CLI) | payer MEDICARE, OTHER, SELFPAY ==
[2022-05-15 14:59] LABS: COVID19 -Nasal RAPID Negative (Negative)
== END ==
PROVIDERS: Family Provider Family Medicine; PCP Family Medicine; Visit Provider Physical Medicine & Rehabilitation
DX: Z20.822 Contact with and (suspected) exposure to COVID-19 (principal)
CPT/HCPCS: 87635; C9803

== ENCOUNTER 2022-05-16 14:51 | Outpatient (CLI) | payer MEDICARE, OTHER, SELFPAY ==
[2022-05-16] VITALS (9 sets, daily range): BP systolic 105–126; BP diastolic 58–89; PULSE 73–86; RESP 12–24; TEMP 36.4; O2SAT 96–100
--- NOTE | 2022-05-16 14:52 | DI.RAD.S_ITS ---
PROCEDURE: PAIN L INTERLAMINAR/CAUDAL INJ INDICATIONS: SPONDYLOSIS COMPARISON: [facility], CR, XR LUMBAR SPINE MIN 4V, 12/29/2021, 10:49. [facility], XA, PAIN L INTERLAMINAR/CAUDAL INJ, 03/22/2021, 8:31. FINDINGS: Fluoroscopic spot filming was performed to verify placement of a spinal needle at the L4-L5 level, as labeled on the films. Appropriate location of the needle tip was confirmed by injection of iodinated contrast. IMPRESSION: Intraprocedural examination within normal limits. Dictated by: Murray Lomeli M.D. on 05/16/2022 at 14:50 Approved by: Murray Lomeli M.D. on 05/16/2022 at 14:53
[2022-05-16] MEDS: MIDAZOLAM 2 MG/2 ML VIAL IV (15:24)
[2022-05-16] MEDS: IOPAMIDOL 15 ML VIAL 3 ML INJ (15:29)
[2022-05-16] MEDS: BUPIVACAINE 0.25% (PF) VIAL 2 ML INJ (15:29)
[2022-05-16] MEDS: DEXAMETHASONE 10 MG/ML VIAL 20 MG INJ (15:30)
[2022-05-16] MEDS: BETAMETHASONE 30 MG/5 ML MDV 6 MG INJ (15:30)
--- NOTE | 2022-05-16 15:43 | P.PCN_ITS ---
Date/Time/Diagnoses Date of procedure: 05/16/22 Time of procedure: 15:43 Pre-procedure diagnosis: 1. HNP WITH RADICULAR FEATURES, 2. MULTILEVEL CENTRAL STENOSIS, Post-procedure diagnosis: same Procedure Notes Procedure: 1. FLUOROSCOPICALLY GUIDED CONTRAST CONTROLLED INTERLAMINAR EPIDURAL STEROID INJECTION -L4/5 Indications: Mansoor is referred by Dr. Tapia for treatment of Bilateral Foraminal Stenosis R>L LE symptoms. Physician: Nick Fields Total Fluoroscopy time (seconds): 12 Total sedation minutes: 13 Complications: none Procedure in detail & Post-procedure care: FINDINGS Multilevel Central Spinal Stenosis with Nerve Root Compression DESCRIPTION OF PROCEDURE Fluoroscopically guided, contrast-controlled L4/5 translaminar epidural steroid injection. Following review of allergy and review of potential side effects and complications, including, but not necessarily limited to, infection, allergic reaction, local tissue breakdown, temporary as well as permanent nerve injury, paralysis, stroke and possible , the patient indicated that the patient understood and agreed to proceed. An informed consent document was signed by the patient, witnessed by a nurse, and placed in the patient's chart. Additionally, other treatment options including modalities, medications, and physical therapy were reviewed with the patient. After review of previous anaesthesic history and IV conscious sedation the patient was deemed safe to proceed with today?s procedure with IV conscious sedation as ASA class II designation. Safety time-out was performed to confirm patient ID, procedure to be performed and site of procedure. IV sedation was accomplished with a combination of 2mg of Versed was administered by the RN after DO order, titrated to patient comfort during the course of the procedure while the patient remained responsive to all verbal commands In the prone position, following sterile prep and drape of the lumbar region, the L4/5 translaminar space was identified fluoroscopically. The skin was anesthetized via a 25-gauge, 1.5inch needle with 1% lidocaine solution. At this point, a 22-gauge short bevel spinal needle was atraumatically introduced and advanced under fluoroscopic guidance into the region of the L4/5 translaminar space. Depth was confirmed on lateral view. Radiological data, including multiple fluoroscopic views of the lumbar spine, reveal a spinal needle at the L4/5 translaminar space. Lateral views then show placement of the needle in the epidural space. Subsequent views show contrast material flowing superiorly and inferiorly in the epidural space. No vascular or intrathecal uptake is observed. At this point, using loss of resistance technique with saline and air, the epidural space was entered. This was confirmed following negative aspiration with injection of approximately 1.5cc of Isovue 200, showing excellent epidural flow without vascular or intrathecal uptake. At this point, 1cc of 1% lidocaine solution combined with 3cc or 20mg of dexamethasone and 6mg betamethasone was injected without incident. The patient tolerated the procedure well without signs or symptoms of complications prior to transfer to the recovery area continued monitoring without incident. The patient was then transferred to the recovery area where they were observed for an appropriate period of time after the injection. The patient reported a VAS score of 6 prior to the procedure and a post- procedure VAS of 0. POST OP INSTRUCTIONS The patient was provided a Pain Log to continue to record their response to the target-specific procedure prior to follow-up visit with their referring physician. Additionally, specific post-injection care instructions and a contact number to our office were provided if concerns arise regarding possible complications associated with the procedure are suspected.
== END 2022-05-16 16:00 | disposition home or self-care (01) ==
LOC: RAD 14:52
PROVIDERS: Family Provider Family Medicine; PCP Family Medicine; Referring Provider Physical Medicine & Rehabilitation; Visit Provider Physical Medicine & Rehabilitation
DX: M48.061 Spinal stenosis, lumbar region without neurogenic claudication (principal); M51.16 Intervertebral disc disorders with radiculopathy, lumbar region
CPT/HCPCS: 62323; 99152; J0702; J1100; J2250; J3490

== ENCOUNTER 2023-03-20 09:34 | Outpatient (CLI) | payer MEDICARE, OTHER, SELFPAY ==
[2023-03-20] VITALS (8 sets, daily range): BP systolic 119–139; BP diastolic 64–80; PULSE 62–75; RESP 16–22; TEMP 36.9; O2SAT 98–100
--- NOTE | 2023-03-20 09:36 | DI.RAD.S_ITS ---
PROCEDURE: PAIN L INTERLAMINAR/CAUDAL INJ INDICATIONS: SPONDYLOSIS COMPARISON: [facility], XA, PAIN L INTERLAMINAR/CAUDAL INJ, 05/16/2022, 15:28. FINDINGS: Fluoroscopic spot filming was performed to verify placement of a spinal needle at the L4-L5 level, as labeled on the films. Appropriate location of the needle tip was confirmed by injection of iodinated contrast. IMPRESSION: Intraprocedural examination within normal limits. Dictated by: Murray Lomeli M.D. on 03/20/2023 at 11:16 Approved by: Murray Lomeli M.D. on 03/20/2023 at 11:16
[2023-03-20] MEDS: MIDAZOLAM 2 MG/2 ML VIAL IV (10:58)
[2023-03-20] MEDS: BUPIVACAINE 0.25% (PF) VIAL 2 ML SUBCUT (11:01)
[2023-03-20] MEDS: BETAMETHASONE 30 MG/5 ML MDV 6 MG INJ (11:01)
[2023-03-20] MEDS: DEXAMETHASONE 10 MG/ML VIAL 20 MG INJ (11:02)
[2023-03-20] MEDS: IOPAMIDOL 15 ML VIAL 3 ML INJ (11:02)
--- NOTE | 2023-03-20 11:10 | P.PCN_ITS ---
Date/Time/Diagnoses Date of procedure: 03/20/23 Time of procedure: 11:10 Pre-procedure diagnosis: 1. HNP WITH RADICULAR FEATURES, 2. MULTILEVEL CENTRAL STENOSIS, Post-procedure diagnosis: same Procedure Notes Procedure: 1. FLUOROSCOPICALLY GUIDED CONTRAST CONTROLLED INTERLAMINAR EPIDURAL STEROID INJECTION -L4/5 Indications: Mansoor is referred by Dr. Tapia for treatment of Bilateral Foraminal Stenosis R>L LE symptoms. Physician: Nick Fields Total Fluoroscopy time (seconds): 8 Total sedation minutes: 10 Complications: none Procedure in detail & Post-procedure care: FINDINGS Multilevel Central Spinal Stenosis with Nerve Root Compression DESCRIPTION OF PROCEDURE Fluoroscopically guided, contrast-controlled L4/5 translaminar epidural steroid injection. Following review of allergy and review of potential side effects and complications, including, but not necessarily limited to, infection, allergic reaction, local tissue breakdown, temporary as well as permanent nerve injury, paralysis, stroke and possible , the patient indicated that the patient understood and agreed to proceed. An informed consent document was signed by the patient, witnessed by a nurse, and placed in the patient's chart. Additionally, other treatment options including modalities, medications, and physical therapy were reviewed with the patient. After review of previous anaesthesic history and IV conscious sedation the patient was deemed safe to proceed with today?s procedure with IV conscious sedation as ASA class II designation. Safety time-out was performed to confirm patient ID, procedure to be performed and site of procedure. IV sedation was accomplished with a combination of 2mg of Versed was administered by the RN after DO order, titrated to patient comfort during the course of the procedure while the patient remained responsive to all verbal commands In the prone position, following sterile prep and drape of the lumbar region, the L4/5 translaminar space was identified fluoroscopically. The skin was anesthetized via a 25-gauge, 1.5inch needle with 1% lidocaine solution. At this point, a 22-gauge short bevel spinal needle was atraumatically introduced and advanced under fluoroscopic guidance into the region of the L4/5 translaminar space. Depth was confirmed on lateral view. Radiological data, including multiple fluoroscopic views of the lumbar spine, reveal a spinal needle at the L4/5 translaminar space. Lateral views then show placement of the needle in the epidural space. Subsequent views show contrast material flowing superiorly and inferiorly in the epidural space. No vascular or intrathecal uptake is observed. At this point, using loss of resistance technique with saline and air, the epidural space was entered. This was confirmed following negative aspiration with injection of approximately 1.5cc of Isovue 200, showing excellent epidural flow without vascular or intrathecal uptake. At this point, 1cc of 1% lidocaine solution combined with 3cc or 20mg of dexamethasone and 6mg betamethasone was injected without incident. The patient tolerated the procedure well without signs or symptoms of complications prior to transfer to the recovery area continued monitoring without incident. The patient was then transferred to the recovery area where they were observed for an appropriate period of time after the injection. The patient reported a VAS score of 6 prior to the procedure and a post- procedure VAS of 0. POST OP INSTRUCTIONS The patient was provided a Pain Log to continue to record their response to the target-specific procedure prior to follow-up visit with their referring physician. Additionally, specific post-injection care instructions and a contact number to our office were provided if concerns arise regarding possible complications associated with the procedure are suspected.
--- NOTE | 2023-03-20 11:23 | DI.RAD.S_ITS ---
PROCEDURE: XR KNEE LT 3V INDICATIONS: knee pain with effusion TECHNIQUE: 3 views of the knee were acquired. COMPARISON: None. FINDINGS: Bones: No fractures or dislocations. No suspicious bony lesions. Moderate to severe tricompartmental arthritic change. No erosions. Soft tissues: Mild joint effusion. No suspicious soft tissue calcifications. IMPRESSION: Mild effusion. Tricompartmental arthritic change. Dictated by: Kelli Cantrell M.D. on 03/20/2023 at 16:57 Approved by: Kelli Cantrell M.D. on 03/20/2023 at 16:58
== END 2023-03-20 11:35 | disposition home or self-care (01) ==
LOC: RAD 09:35
PROVIDERS: Family Provider Family Medicine; PCP Family Medicine; Referring Provider Physical Medicine & Rehabilitation; Visit Provider Physical Medicine & Rehabilitation
DX: M51.16 Intervertebral disc disorders with radiculopathy, lumbar region (principal); M17.12 Unilateral primary osteoarthritis, left knee; M48.061 Spinal stenosis, lumbar region without neurogenic claudication; M25.462 Effusion, left knee
CPT/HCPCS: 62323; 73562; 99152; J0702; J1100; J2250; J3490

== ENCOUNTER → 2023-08-22 10:51 | Outpatient (CLI) | payer MEDICARE, OTHER, SELFPAY ==
[2023-08-22 11:51] LABS: Add Manual Diff / Slide Review NO; Basophils Absolute Auto 0 /uL (0-100); Basophils Percent Auto 0.5 % (0-2); Eosinophils Absolute Auto 100 /uL (0-450); Eosinophils Percent Auto 1.7 % (2-4); Hemoglobin 14.3 g/dL (13.5-17.5); Lymphocytes Absolute Auto 1800 /uL (1100-4500); Mean Corpuscular HGB Conc 34.1 % (30-36); Mean Corpuscular Hemoglobin 32.8 PG (26-34); Mean Corpuscular Volume 96.2 fL (80-100); Monocytes Absolute Auto 800 /uL (0-900); Monocytes Percent Auto 10.3 % (3-14); Neutrophils Absolute Auto 4800 /uL (1500-7000); Neutrophils Percent Auto 63.5 % (50-75); Platelet Count 232 X10^3/uL (150-400); Red Blood Cell Count 4.37 X10^6/uL (4.5-5.9); Red Cell Distribution Width 13.8 % (11.6-14.8); White Blood Cell Count 7.6 X10^3/uL (4.5-11.0)
[2023-08-22 12:01] LABS: Hemoglobin A1C% w Est Avg Glu 5.4 % (4.0-6.0)
[2023-08-22 12:24] LABS: Vitamin D 25 Hydroxy (D3) 28.8 ng/mL (30.0-100.0)
[2023-08-22 14:29] LABS: Albumin 3.7 g/dL (3.5-5.0); BUN Creatinine Ratio 33.8 (6-22); Blood Urea Nitrogen 22 mg/dL (9-20); Calcium 9.5 mg/dL (8.4-10.2); Carbon Dioxide 25 mmol/L (22-32); Chloride 101 mmol/L (98-107); Estimated Glomerular Filt Rate > 60 mL/min (>60); Glucose 100 mg/dL (80-110); HEMOLYSIS < 15 (0-50); Potassium 4.4 mmol/L (3.4-5.1); Sodium 132 mmol/L (137-145)
[2023-08-22 14:37] LABS: Prealbumin 26.1 mg/dL (17.6-36.0)
== END ==
PROVIDERS: Family Provider Family Medicine; PCP Family Medicine; Referring Provider Orthopaedic Surgery Adult Reconstructive Orthopaedic Surgery; Visit Provider Orthopaedic Surgery Adult Reconstructive Orthopaedic Surgery
DX: Z01.818 Encounter for other preprocedural examination (principal); R73.9 Hyperglycemia, unspecified; E55.9 Vitamin D deficiency, unspecified; Z01.812 Encounter for preprocedural laboratory examination; R77.0 Abnormality of albumin
CPT/HCPCS: 36415; 80048; 82040; 82306; 83036; 84134; 85025; 93005

== ENCOUNTER 2023-09-21 08:52 | Day surgery (SDC) | payer MEDICARE, OTHER, SELFPAY ==
[2023-09-17 11:50] VITALS: BMI 22.4
[2023-09-21] VITALS (12 sets, daily range): BP systolic 121–147; BP diastolic 71–87; PULSE 69–95; RESP 16–20; TEMP 35.6–36.3; O2SAT 95–100; BMI 22.4
--- NOTE | 2023-09-21 | DI.RAD.S_ITS ---
PROCEDURE: XR KNEE LT 1TO2V INDICATIONS: post op TECHNIQUE: 2 view(s) of the knee acquired. COMPARISON: [facility], CR, XR KNEE LT 3V, 03/20/2023, 11:19. FINDINGS: Bones: Patient is status post knee joint arthroplasty. Hardware components are in expected positions. Visualized bony structures are intact. Soft tissues: Overlying postoperative changes are noted. IMPRESSION: Expected post-operative appearance of a knee arthroplasty. Dictated by: Luigi Miguel M.D. on 09/21/2023 at 13:52 Approved by: Luigi Miguel M.D. on 09/21/2023 at 13:53
[2023-09-21] MEDS: LACTATED RINGERS 1,000 ML 42 ML IV ×2 (09:19→12:47)
--- NOTE | 2023-09-21 10:37 | PM.PREOP ---
Pre-operative Note Interval Note History & Physical reviewed/Exam performed by Physician: Yes Changes to H&P: No
[2023-09-21] MEDS: TRANEXAMIC ACID 1,000 MG VIAL 1000 MG INJ ×2 (11:14→12:01)
[2023-09-21] MEDS: CEFAZOLIN 2 GM/100 ML PREMIX 100 ML IV ×2 (11:14→18:09)
--- NOTE | 2023-09-21 11:35 | SUR.OPER ---
Supine on padded OR bed, head on pillow, arms secured on padded arm boards at <90 degrees abduction, legs uncrossed, safety belt at thigh, tape over blanket over lower legs. operative leg draped free in knee positioner boot
[2023-09-21] MEDS: ROPIVACAINE/EPI/CLONIDINE/KET 50 ML SYRINGE INJ (11:44)
--- NOTE | 2023-09-21 13:07 | P.OP_ITS ---
Operative Date/Time/Diagnoses Date of procedure: 09/21/23 Pre-op diagnosis: Left knee arthritis Post-op diagnosis: same Procedure & Clinicians Procedure: Left total knee arthroplasty Same procedure as scheduled: Yes Surgeon: Sean Tanner Artist Suspect: Sondra Cantrell Anesthesia Type: General, Peripheral nerve block and Local Operative Notes Estimated Blood Loss (mL): 150 Tourniquet time (min): 54 Procedure in detail: Implants: Francois Persona Medial Congruent Total Knee Arthroplasty: * Size 9 Cruciate Retaining Femoral Component * Size G Tibial Component * Size 11 Medial Congruent Polyethylene Insert * Unresurfaced Patella Procedure Summary: Valgus knee which balanced to within 1 degree and extension. No lateral release necessary. 5? of external rotation on the femur provided balance in flexion. Bone quality noted to be very high Procedure in Detail: This patient was seen preoperatively and evaluated for knee pain which was refractory to numerous nonoperative treatment modalities. Their hip pain correlated with radiographic changes demonstrating significant degeneration in the knee joint. The risks and benefits of continued nonoperative management versus operative management were discussed at length and all of the patient?s questions were answered. Additional educational materials providing further details beyond our discussion in clinic were provided via a publicly available patient education video which included the incidence of medical complications associated with total knee arthroplasty, reasons for revision following total knee arthroplasty, and patient satisfaction rates following total knee arthroplasty. That video can be accessed at [email or web address] . With this understanding of the risks inherent to the procedure, the patient elected to move forward with operative management. Following preoperative optimization, the patient was scheduled for surgery. The patient was met in the preoperative holding area the day of the procedure and all questions were answered. The patient?s nares were swabbed with betadine in order to decolonize them from MRSA. Informed consent was signed and the operative limb was marked with indelible ink.? The patient was brought back to the operating room where anesthesia was induced. The patient was transferred to the operating table and all bony prominences were padded. The operative site was prepped and draped in the usual sterile fashion. A second prep stick was utilized following drape placement. The incision was marked corresponding to the medial aspect of the tibial tubercle and the patella. Ioban was wrapped circumferentially around the knee. Prior to incision, tranexamic acid and cefazolin were administered. Templating images were displayed. A timeout procedure was performed verifying the patient?s identity, medical comorbidities, allergies, relevant medications, anesthesia type and the surgical plan. All present were in agreement. The assistance of a physician captain assistant was required for positioning, room setup, soft tissue retraction and wound closure. Without this assistance, the procedure would have been significantly more challenging and time consuming.?? The tourniquet was inflated prior to incision. I made an anterior incision over the knee, dissected through the subcutaneous tissues and identified the lateral border of the VMO. Medial and lateral soft tissue flaps were developed. A medial parapatellar arthrotomy was performed ensuring that adequate capsular tissue would remain for closure at the conclusion of the procedure. The hip was brought into extension and the medial soft tissues were released off the joint line of the tibia. Tissue overlying the distal anterior femur was released to allow for later assessment for anterior notching but left in place. A portion of the retropatellar fat pad was excised while protecting the patellar tendon. The patella was everted. The patella was not resurfaced. Osteophytes were excised and a lateral facetectomy was performed. The patella was released from its everted position.?? I flexed the knee to 90 degrees and placed retractors to allow access to the notch. An opening reamer was used to gain access to the femoral canal and an intramedullary billie was introduced into the canal. Diaphyseal fit was obtained in order to allow a distal femoral resection at 5 degrees relative to the anatomic axis, thereby aiming to achieve mechanical alignment of the eventual implant. A +1 resection was planned and assessed using an elena wing. I then made the cut using a sagittal saw. This provided additional access to the femoral notch. The ACL and PCL were excised. Retractors were placed on the lateral and medial tibia. I hyperflexed the knee while externally rotating it to sublux the tibia anteriorly. I placed a PCL retractor posteriorly and used this to provide additional anterior subluxation. The remainder of the PCL root was released. An intramedullary reamer was used in the ACL footprint to provide access to the tibial canal. An extramedullary guide was positioned to allow a resection perpendicular to the anatomic and mechanical axes of the tibia, thereby aiming to achieve mechanical alignment of the eventual implant. A +4 resection of the lateral tibia was planned and the tibial cutting jig was pinned in place. I evaluated the cut depth, varus-valgus alignment and slope of the planned tibial resection and deemed them satisfactory. I cut the tibia with a sagittal saw while using retractors to protect the MCL, patellar tendon, and posterolateral structures.? The knee was repositioned in extension and the Fuzion soft tissue balancing gauge was introduced. This demonstrated that there was equal tension in the medial and lateral compartments of the knee with the knee in full extension and no additional soft tissue releases were necessary. When 60 pounds of force was applied to the Fuzion device, the extension gap opened to 10 mm. I moved the knee into 90 degrees of flexion, and the Fuzion device was recalibrated by removing a 9 mm aditya to allow assessment of the flexion gap. The Fuzion was plac ed perpendicular to the resected surface of the tibia and the resected surface of the distal femur. Sixty pounds of traction was applied to match the tension of the extension gap. This externally rotated the femur to 5 degrees. Pins were placed in the 10 mm holes. The measured resection guide was placed over the pins to allow sizing. Appropriate sizing was determined and a 4-in-1 block was placed . This was double checked using the Fuzion device to ensure that it would open to an equal distance as the extension gap when the same amount of force was applied. The Fuzion block was also used to assess flexion gap symmetry. An elena wing was used to ensure there would be no anterior notching. Retractors were placed to protect the soft tissues during resection. Captured cuts were performed with a sagittal saw for the anterior and posterior femur as well as the corresponding chamfers.? Trial components were placed and the construct was assessed. Range of motion was assessed by ensuring the knee could achieve full extension and assessing maximum passive knee flexion by elevating the femur and allowing the heel to passively fall towards the buttock. Gap symmetry was assessed by stressing the medial and lateral compartments in both extension and flexion. Laxity was assessed in both extension and flexion and the polyethylene trial was adjusted with shims as necessary. Patellar tracking was assessed with knee flexion. Once satisfied with the construct, I moved forward with implant insertion. Lug holes were drilled in the femur and the tibia was prepped ensuring appropriate sizing and rotation relative to the tibial tubercle.?? The bony ends were irrigated and cement was prepared. Portions of the anterior chamfer cut were utilized as cement restrictors in the femur and tibia where intramedullar rods had been utilized. Cement was placed on the entirety of the undersurface of both the tibial and femoral components. Cement was placed onto the dry tibia and pressurized into the cancellous bone. I impacted the tibial component into place. Cement was removed. The tibia was reduced underneath the femur and placed cement onto the dry surface of the resected femur. I placed the femoral component as well as the intended polyethylene trial. Cement was removed from around the femur. I brought the knee into extension and manually pressurized the construct by pushing on the heel while the cement dried. The knee was bathed in a dilute mixture of betadine and peroxide. A mixture of Ropivacaine, Epinephrine, Clonidine and Toradol was infiltrated throughout the soft tissues into structures including the VMO, patellar tendon, quadriceps tendon, MCL and femoral periosteum. A low adductor canal block was also performed using this mixture unless one had been placed preoperatively by anesthesia. The knee was copiously irrigated with pulse lavage. Once cement had been allowed to dry the knee was again trialed. Range of motion was assessed by ensuring the knee could achieve full extension and assessing maximum passive knee flexion by elevating the femur and allowing the heel to passively fall towards the buttock. Gap symmetry was assessed by stressing the medial and lateral compartments in both extension and flexion. Laxity was assessed in both extension and flexion and the polyethylene trial was adjusted with shims as necessary. Patellar tracking was assessed with knee flexion. The tourniquet was let down and the polyethylene trial was removed. I inspected the knee inspected for excess cement and any residual bleeding. Once hemostasis was achieved I inserted the final polyethylene and ensured appropriate engagement of the dovetail locking mechanism.?? The arthrotomy was closed with absorbable interrupted suture ensuring that this extended to the top of the arthrotomy. This was backed up with running barbed suture throughout the arthrotomy. The skin was closed with 2-0 and 3-0 sutures. Surgical glue was applied and a soft dressing was placed.?The sponge, instrument and needle counts were reported as being correct at the end of the case.??No obvious complications occurred. The patient was transferred from the operating table back to a stretcher. The patient emerged from anesthesia without difficulty and was taken to the PACU in a stable condition.? Plan for aftercare: * Weightbearing as tolerated * Mobilization as soon as the patient has recovered from anesthesia. If physical therapists are unavailable at the time the patient is ready to ambulate, then nursing staff should help patient ambulate * Aspirin 81 twice per day for DVT prophylaxis * Multimodal pain regimen with no IV opioids ordered * Anticipate discharge home tomorrow * Follow up at [facility] in 2 weeks * Detailed postoperative instructions available at [email or web address]
[2023-09-21] MEDS: OXYCODONE IR 5 MG TABLET PO ×2 (13:45→15:11)
[2023-09-21] MEDS: ACETAMINOPHEN IV 1,000 MG/100 ML VIAL 400 MG IV (13:45)
[2023-09-21] MEDS: ONDANSETRON 4 MG/2 ML INJ IV (13:46)
[2023-09-21] MEDS: LACTATED RINGERS 1,000 ML 100 ML IV (14:38)
[2023-09-21] MEDS: IBUPROFEN 600 MG TABLET PO ×2 (14:38→20:12)
--- NOTE | 2023-09-21 16:00 | PT.IPTN ---
Current Diagnoses Unilateral primary osteoarthritis, left knee (09/21/23) Surgery Performed Operation Date: 09/21/23 10:45 Actual Procedures p Total Knee Arthroplasty(Left) - Sean Tanner MD Physical Therapy Treatment Note M3 PT-IP Subjective Start: 09/21/23 16:26 Freq: NEEDED Status: Active Protocol: Document 09/21/23 16:00 AB (Rec: 09/21/23 16:28 AB [id number]) Subjective Physical Therapy Visit Type Type Patient Refusal Notes PT eval received and EMR reviewed. checked on pt and pt refused PT. stated that he is having a lot of pain on L knee and that he is not ready to move. obtained PLOF and home set up with pt. provided post-op folder to pt. will f/ u tomorrow.
[2023-09-21] MEDS: ACETAMINOPHEN 325 MG TABLET 650 MG PO (20:11)
[2023-09-21] MEDS: DOCUSATE 100 MG CAPSULE PO (20:12)
[2023-09-21] MEDS: PRAVASTATIN 20 MG TABLET 80 MG PO (20:12)
[2023-09-21] MEDS: ASPIRIN EC 81 MG TABLET PO (20:12)
[2023-09-21] MEDS: diphenhydrAMINE 12.5 MG/5 ML UDC PO (20:25)
[2023-09-22 00:49] VITALS: BP 124/80; PULSE 91; RESP 17; TEMP 36.8; O2SAT 98
[2023-09-22] MEDS: diphenhydrAMINE 12.5 MG/5 ML UDC PO (01:35)
[2023-09-22] MEDS: ACETAMINOPHEN 325 MG TABLET 650 MG PO ×2 (01:38→08:12)
[2023-09-22] MEDS: CEFAZOLIN 2 GM/100 ML PREMIX 100 ML IV (02:25)
[2023-09-22 04:24] LABS: Hematocrit 37.1 % (41-53); Hemoglobin 12.7 g/dL (13.5-17.5)
[2023-09-22] MEDS: SODIUM CHLORIDE 0.9% FLUSH 10 ML IV (05:43)
[2023-09-22] MEDS: PANTOPRAZOLE DR 20 MG TABLET PO (06:36)
[2023-09-22] MEDS: OXYCODONE IR 5 MG TABLET PO (06:38)
[2023-09-22 07:54] VITALS: BP 125/66; PULSE 73; RESP 16; TEMP 37.1; O2SAT 93
[2023-09-22] MEDS: IBUPROFEN 600 MG TABLET PO (08:12)
[2023-09-22] MEDS: predniSONE 5 MG TABLET PO (08:12)
[2023-09-22] MEDS: ASPIRIN EC 81 MG TABLET PO (08:12)
--- NOTE | 2023-09-22 09:02 | CM.DANOTE ---
DCP: Case received, EMR reviewed and met with patient. Introduced self and role. Was able to obtain information regarding patient's baseline activity level prior to surgery. DCP assessment completed with information currently available. Patient is a 73 year old male who admitted yesterday morning to the care of the orthopedic team. PCP: Dr. Tapia. Payer: confirmed: Medicare/[facility]. Patient came to the hospital via private vehicle for a surgical procedure. Patient had left total knee arthroplasty. Patient has history of left knee arthritis. Met with patient in his room. He was sitting up on the edge of the bed. He was finishing his breakfast. Patient is alert, pleasant. Confirmed that he resides in [place] with spouse, Shannan Alexander. At his baseline, he is independent. Asked him how he was mobilizing prior to surgery, stated, hobbling around. He recently obtained a cane and walker for post-surgery. Stated that his spouse should be able to assist him, she works for Hospice, but will be going back to work next week. He will be working with physical therapy. P: DCP to continue to follow. Plan is for patient to work with P.T, should be able to go home when cleared by the therapy team. Bri Friedman RN/Lace Stripper Discharge Planning/Care Management CM Discharge Assessment Start: 09/22/23 09:00 Freq: Status: Active Protocol: Document 09/22/23 09:00 (Rec: 09/22/23 09:02 [id number]) Discharge Planning Assessment Assigned Java Programmer Bri Friedman RN/Lace Stripper Advance Directives? Yes Advance Directives on File No History Provided By Patient,Medical Record Prior Living Arrangements House Household Members spouse Type of transporation used prior to Drives own vehicle admit Independent with ADL's Yes Is patient alert and oriented? Yes Caregiver for Another No DME Already Rented / Owned FWW / Walker,Cane Comment Patient obtained for surgery, prior, was using no DME supplies. Patient/Family Preference OP PT Therapy Barriers to Discharge No Comment Patient confirmed that spous will be able to assist. Discharge Plan Home Transportation Arrangement Spouse Referrals Initiated None needed Whiteboard Updated in Patient Room with Yes name and ext. # of Java Programmer Review Status In Process Next Review Type Continued Stay Review Pre-Anesthesia Assessment Start: 09/17/23 11:50 Freq: Status: Complete Protocol: Document 09/17/23 11:50 CAB (Rec: 09/17/23 12:22 CAB [id number]) Pre-Anesthesia Assessment Patient Information Reviewed Via Phone Assessment Assessment Completed With Patient Diagnostic Results BMP/CMP,CBC,EKG Comment Labs/EKG @ [facility] 08/22/23 Primary Care Provider Armin Tapia Comment PCP pre-op visit 08/18/23 scanned and in surgery folder for dos review Medical Clearance Received Yes Seen Specialist in Last 12 Months Yes Specialist Seen Orthopedist,Other Comment Rheumatology clearance form scanned and in surgery folder for dos review Primary Language [place] Steel Chipper Required No Height 6 ft Weight 165 lb Body Mass Index (BMI) 22.4 Hearing Ability Normal Visual Assist Magnifying Glass Dentition Type Teeth, Natural Present,Teeth, Missing Barriers to Learning None Hx Anesthesia Reactions No Hx Family Anesthesia Reaction No Hx Malignant Hyperthermia No Hx Blood Transfusions No Anesthesia Review Requested No Sales Merchandiser No alcohol intake current alcohol intake frequency 0-2 drinks per day Smoking Status Never smoker Substance Use Type does not use Pain Present Pain Reported Musculoskeletal Symptoms Abnormal Gait,Arthralgias,Back Pain,Difficulty Walking,Joint Pain History of Falling (Recent or History of No ) Patient is completely paralyzed or No completely immobile Gait/Transferring Normal/bedrest/immobile Mental Status Oriented to own ability Is patient on oxygen? No Does patient have ROMERO/SOB No Hx Sleep Apnea No Currently Taking a Beta Chris No Can You Climb a Flight of Stairs Without Yes SOB Hx Chest Pain No Hx SOB No Hx Syncope or Dizziness No Anti-Coagulant Therapy No Has a Manager Fashion No Cardiac Testing No Hx Pacemaker/ICD No Pacemaker Rep Required? No Cardiac Clearance Received Not Applicable Diet Type At Home Regular Dysphagia Yes Gastrointestinal Symptoms None Chronic UTI No Urinary Catheter Present No Hx Urinary Self Catheterization No Diabetes No HgbA1C 5.4 Date 08/22/23 Hx Drug Resistant Organism No Presence of External or Internal Medical Yes: CABG x 1, himanshu eye IOLs Devices Received a COVID vaccine? Yes Received all doses? Yes Marital Status Lives With spouse Current Living Arrangements House Number of Floors (Floors) One Floor Support System Spouse Does the Patient Have Assistance After Yes Surgery Patient Discharge Plan Description Return Home Comment Pt advised possible same day surgery per surgeon Feels Safe in Current Environment Yes Been Physically Hurt or Threatened By a No Person in Current Environment Do you have thoughts of harming yourself None or others? Are you currently considering suicide? No Do you have a plan to hurt yourself or No Plan others? Do You Have Any Spiritual Beliefs That No May Affect Your HC Choices? Do You Have Any Cultural Practices That No May Affect Your HC Choices? Comment Church Who Can We Speak to About Patient's Care Family, friends Identifying Code for Release of Patient Declines to issue Information Health Care Proxy/Next of Kin Lindsay () Health Care Proxy Emergency Contact Name Lindsay () Emergency Contact Advance Directives? Yes Advance Directives on File No Requested Patient Bring Advanced Yes Directives DOS Power of Manager Radiation Yes Power of Manager Radiation Name Lindsay () Power of Manager Radiation PAC Instructions Durable medical equipment, Medications to take/avoid, Nasal antibiotic,No ETOH/ petroleum product on skin DOS, NPO,Post-op transportation,Pre -surgical wash,Sturdy shoes/ comfortable clothes,Do not bring valuables and remove jewelry
--- NOTE | 2023-09-22 09:10 | PT.IIE ---
Current Diagnoses Unilateral primary osteoarthritis, left knee (09/21/23) Surgery Performed Operation Date: 09/21/23 10:45 Actual Procedures p Total Knee Arthroplasty(Left) - Sean Tanner MD Surgical History (Last Updated 09/17/23 @ 12:10 by Veronika Rojas, RN) History of surgery to heart and great vessels Hx of arthroscopy of right knee Hx of bilateral cataract extraction (~2015) Hx of hernia repair Hx of tonsillectomy S/P laparoscopic-assisted sigmoidectomy (~2017) Medical History (Last Updated 09/17/23 @ 12:15 by Veronika Rojas, RN) Arthritis Cardiac arrhythmia Coronary heart disease Easy bruisability Encounter for preprocedural laboratory examination Heart disease History of COVID-19 (2021) HLD (hyperlipidemia) Inflammatory arthritis Inflammatory bowel disease Left knee DJD Osteoarthritis 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 Sacral dysfunction Spondylosis without myelopathy or radiculopathy, lumbosacral region Physical Therapy Inpatient Evaluation/Re-Eval M1 PT/OT-IP Prior Functional Status Start: 09/21/23 16:26 Freq: NEEDED Status: Discharge Protocol: Document 09/22/23 09:10 AB (Rec: 09/22/23 13:38 AB [id number]) Medical Review Prior Functional Status Medical History Reviewed Yes Communication able to make needs known Mobility and Gait pt stated that he was independent with all mobilities and ambulation without AD Social History Household Members spouse Living Arrangements House Number of Floors (Floors) One Floor Number of Stairs To Enter/Railing? no steps to enter Home Environment Standard Height Toilet,Walk in Shower Home Equipment Front Wheel Walker M2 PT-IP Current Condition Start: 09/21/23 16:26 Freq: NEEDED Status: Discharge Protocol: Document 09/22/23 09:10 AB (Rec: 09/22/23 13:38 AB [id number]) Physical Therapy Current Condition Current Condition Evaluation Date 09/22/23 Treatment Diagnosis s/p L TKA; difficulty in walking Onset Date 09/21/23 M3 PT-IP Subjective Start: 09/21/23 16:26 Freq: NEEDED Status: Discharge Protocol: Document 09/22/23 09:10 AB (Rec: 09/22/23 13:38 AB [id number]) Subjective Physical Therapy Visit Type Type Initial Evaluation Visit Start Time 09:10 Visit Stop Time 09:45 Number of MANAGER METROLOGY Visits 35 Physical Therapy Visit Comments Patient Comments agreeable to do PT Therapy Pain Assessment Pain When Pain Assessed At Rest Pain Present Pain Present Pain Reported Location Left Knee Intensity 2 Scale Used Numeric (0 - 10) Pain Management Techniques Apply Cold,Distraction, Modification of Treatment,Re- positioning,Timing of Activity with Medications M4 PT-IP Mobility and Gait Start: 09/21/23 16:26 Freq: NEEDED Status: Discharge Protocol: Document 09/22/23 09:10 AB (Rec: 09/22/23 13:38 AB [id number]) PT-Bed Mobility Assessment Supine to Sit Supine to Sit Standby Assistance PT-Transfer Assessment Sit to and From Stand Sit to and from Stand Standby Assistance,Contact Guard Assistance Equipment Transfer Assistive Device Gait Belt,Front Wheeled Walker Orthotic/Prosthetic Devices or Brace: No Transfers Transfer Destination Chair Transfer Technique ambulated Transfer Ability Level of Assist Standby Assistance,Contact Guard Assistance,1 Person Assistance,Use of Upper Extremities Comments Mobility Comments pt supine in bed and agreeable to do PT. BP: 122/54. pt completed supine to sit SBA . able to sit on EOB SBA. completed sit to stand CGA and cues and ambulated to the chair using FWW ~ 12ft with initial CGA but able to complete ambulation with SBA. pt agreed to do more ambulation. completed sit to stand from the chair SBA and ambulated ~ 75 ft using FWW SBA. pt without LOB. agreed to stay up on the chair. positioned pt on the chair. call light and table placed within reach. Gait Assessment Gait Gait Assistance Required: Standby Assistance,Contact Guard Assist Distance (Feet) 75 Able to Maintain Weight Bearing Status Yes During Gait Assistive Devices Assistive Device Gait Belt,Front Wheeled Walker Orthotic/Prosthetic Devices or Brace: No Gait Deviations General Gait Pattern Decreased Stride Length, Decreased Feet Clearance, Narrow Based Gait Factors Limiting Gait Function Factors Limiting Gait Function Decreased Activity Tolerance, Decreased Strength,Limited Range of Motion,Pain,Poor Balance PT-Balance Assessment Sitting Balance and Reactions Static Sitting Balance Ability Normal Dynamic Sitting Balance Ability Good Standing Balance and Reactions Static Standing Balance Ability Good Dynamic Standing Balance Ability Fair Device Used FWW M5 PT-IP Objective Assessments Start: 09/21/23 16:26 Freq: NEEDED Status: Discharge Protocol: Document 09/22/23 09:10 AB (Rec: 09/22/23 13:38 AB [id number]) Orientation Orientation/Cognition Level of Alertness Alert Orientation Name,Place,Situation Language Function Ability No Deficits Noted Safety Awareness Understands Safety Issues Memory Description No Deficits Noted Gross Range of Motion Lower Extremity ROM Assessment Left Impaired Impairments L knee flexion: ~ 70 deg Strength Lower Extremity Strength Assessment Left Impaired Hip 4/5 Knee 4-/5 Sensation Assessment Sensation Gross Sensation WNL Muscle Tone Muscle Tone WNL Yes M6 PT-IP Treatment Start: 09/21/23 16:26 Freq: NEEDED Status: Discharge Protocol: Document 09/22/23 09:10 AB (Rec: 09/22/23 13:38 AB [id number]) Physical Therapy Treatment Exercises Exercises Heel Slides Education Education Provided Precautions,Weight Bearing Status,Post-Op Packet,Safety M7 PT-IP Assessment and Plan Start: 09/21/23 16:26 Freq: NEEDED Status: Discharge Protocol: Document 09/22/23 09:10 AB (Rec: 09/22/23 13:38 [id number]) PT Summary Assessment and Plan Potential Rehabilitation Potential Good Status of Condition at Evaluation Stable Summary Impairments Pain,ROM,Strength,Balance, Coordination,Sensation,Tone, Cognition,Bed Mobility, Transfers,Gait,Activity Tolerance Assessment Summary pt is a 73 y/o M s/p L TKA POD 1. pt is WBAT on LLE. pt requiring SBA with mobility using FWW and plans to go home with his spouse to assist him . pt has outpt PT set up. pt may go home when medically stable. Goals Bed Mobility Goal Independent Transfer Goal Independent,Front Wheeled Walker Gait Goal Independent,Front Wheel Walker Gait Distance 250 Days to Meet Goals 3 Frequency of Treatment Frequency Of Treatment Twice a Day Treatment Plan Physical Therapy Treatment Plan Bed Mobility Training,Transfer Training,Gait Training, Therapeutic Exercise,Balance Retraining,Post Op Education, Discharge Planning,Hot or Cold Pack,Neuromuscular Re-ed, Coordination Retraining,Manual Therapy Weight Bearing Status Weight Bearing Status Weight Bear as Tolerated Allowed Weight Bearing Amount (enter % LLE WBAT or #) (%) Recommendations To Nursing Amount of Assist Needed Standby Assistance Discharge Recommendations PT Discharge Recommendations Home with Assistance, Outpatient PT Transportation Needs at Discharge Private Vehicle
--- NOTE | 2023-09-22 09:34 | P.DS_ITS ---
History of Present Illness History of Present Illness Date Patient Seen: 09/22/23 Time Patient Seen: 09:35 Chief complaint: OPB Narrative: Operative Date/Time/Diagnoses Date of procedure: 09/21/23 Pre-op diagnosis: Left knee arthritis Post-op diagnosis: same Procedure & Clinicians Procedure: Left total knee arthroplasty Same procedure as scheduled: Yes Surgeon: Sean Tanner Call Center Associate: Sondra Cantrell Anesthesia Type: General, Peripheral nerve block and Local Operative Notes Estimated Blood Loss (mL): 150 Tourniquet time (min): 54 Procedure in detail: Implants: Francois Persona Medial Congruent Total Knee Arthroplasty: * Size 9 Cruciate Retaining Femoral Component * Size G Tibial Component * Size 11 Medial Congruent Polyethylene Insert * Unresurfaced Patella Procedure Summary: Valgus knee which balanced to within 1 degree and extension. No lateral release necessary. 5? of external rotation on the femur provided balance in flexion. Bone quality noted to be very high Procedure in Detail: This patient was seen preoperatively and evaluated for knee pain which was refractory to numerous nonoperative treatment modalities. Their hip pain correlated with radiographic changes demonstrating significant degeneration in the knee joint. The risks and benefits of continued nonoperative management versus operative management were discussed at length and all of the patient?s questions were answered. Discharge Providers Provider Discharge Date: 09/22/23 Primary care physician: Armin Tapia MD Consults: 09/21/23 10:37 Consult to Anesthesiology Routine Comment: Consulting Provider: Anesthesiologist Reason for consultation: Regional block for post operative pain control 09/21/23 14:14 Consult to Discharge Planning Routine Comment: Consult to Physical Therapy Evaluate & Treat Comment: Physician Instructions: postop TKA protocol Discharge provider: Judith Eduardo PA-C Summary Hospital Course Discharge Diagnosis: Left knee osteoarthrits, s/p left total knee arthroplasty Hospital Course: Mr Teixeira's hospital course was unremarkable. On the morning of POD# 1, he was feeling well and wanted to go home. He was eating and voiding without difficulty and his pain was well-controlled with oral medication. He had not yet been evaluated by PT at the time of my visit. Exam Vital Signs (past 8 hours): - 09/22/23 07:54 Temperature 98.7 F Pulse Rate 73 Respiratory Rate 16 Blood Pressure 125/66 Pulse Oximetry 93 Fraction of Inspired Oxygen 21 SaO2/FiO2 Ratio 457 Oxygen Delivery Method Room Air Oxygen Flow Rate 0 Narrative Exam Narrative: 5/5 strength in hip flexors, quadriceps, hamstrings, DF, PF, EHL on left. Sensation to light touch intact throughout LLE; calf soft and compressible. BRYANT over Aquacel CDI. Objective Labs 09/22/23 04:18 Labs: Laboratory Results - last 24 hr 09/22/23 04:18 Hgb 12.7 L Hct 37.1 L PFSH Medical History (Updated 09/17/23 @ 12:15 by Veronika Rojas RN) History of COVID-19 (2021) Easy bruisability HLD (hyperlipidemia) Inflammatory arthritis Osteoarthritis Left knee DJD Encounter for preprocedural laboratory examination 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 Cardiac arrhythmia Sacral dysfunction Spondylosis without myelopathy or radiculopathy, lumbosacral region Coronary heart disease Inflammatory bowel disease Heart disease Arthritis Surgical History (Updated 09/17/23 @ 12:10 by Veronika Rojas RN) Hx of arthroscopy of right knee Hx of tonsillectomy Hx of bilateral cataract extraction (~2015) Hx of hernia repair S/P laparoscopic-assisted sigmoidectomy (~2017) History of surgery to heart and great vessels Family History Mother Heart disease Stroke Heart attack Father Heart disease Melanoma Social History household members: spouse Smoking Status: Never smoker alcohol intake: current Discharge Assessment & Plan Assessment and Plan Assessment: Left knee osteoarthrits, s/p left total knee arthroplasty Plan of Treatment: Discharge home after PT if PT agrees. Pt has discharge meds. Outpt PT, f/u in office as scheduled. Discharge Plan Discharge Plan Patient Disposition: Home Provider Discharge Comment: Follow up at [facility] in 2 weeks for post-op appointment. Detailed postoperative instructions available at [email or web address] Discharge orders & Medications Discharge Orders: Discharge (Order); Ordered 09/22/23 Ordered By: Judith Eduardo Prescriptions: Continued acetaminophen 325 mg Tablet 650 mg PO PRN PRN (Reason: pain or fever) hydrocodone-acetaminophen 5-325 mg tablet 1 tab PO Q6H PRN (Reason: pain) Qty: 10 0RF pravastatin 80 mg tablet 80 mg PO BEDTIME omeprazole 20 mg capsule,delayed release(DR/EC) 20 mg PO DAILY prednisone 5 mg tablet 5 mg PO DAILY Follow up/Referrals: Armin Tapia MD [Primary Care Provider] - Sean Tanner MD [Physician] - 10/05/23 9:00 am (Follow up w/ Yobany Coughlin PA-C, at [facility] in [place].) Diet/Activity/Treatments Diet: Diet as Tolerated Activity: Walk frequently! Cold/Heat Therapy: Ice to knee as needed for pain. Skin/Wound/Dressing Care Report to your healthcare provider any signs of infection, such as:: chills, fever, night sweats, unusual drainage and unusual redness Dressing: May remove BRYANT and shower on 09/24/2023. Leave dressing in place until follow up in office. No bathing or otherwise soaking incision. Call the office if the dressing becomes saturated inside. Visit Report/Discharge Packet Instructions: DI for Knee Replacement, DI for Prescription Opioid Use Stand Alone Forms: Patient Portal/API, Surgery Discharge Discharge Data Primary Care Provider: Armin Tapia Attending Provider: Sean Tanner Quality VTE Deep Vein Thrombosis/Pulmonary Embolism Present on Admission: No
--- NOTE | 2023-09-22 10:04 | PC.NURSE ---
Addendum entered by Ary Koehler R.N. 09/22/23 11:05: D/C instructions given w/ understanding Pt escorted by staff via W/C to waiting vehicle D/C in stable post op status. Original Note: Pt med for discomfort early in shift, w/ good results. Tommy wrap aquacell to surgical knee CDI Orders for D/C relieved. SL D/C intact. Pt await transportation. Call light w/in reach, Pt calls appropriately for needs.
--- NOTE | 2023-09-22 10:46 | PM.PN.1 ---
Subjective Subjective Interval history: Patient seen postoperatively today as well as yesterday evening. He had a fair amount of discomfort yesterday after having had to undergo general anesthesia because of inability to place a spinal anesthetic. His pain today is significantly improved. He has range of motion from 5-90 degrees. He has cleared physical therapy. He is urinated. We are working towards discharging him today Exam Vital Signs (past 8 hours): - 09/22/23 07:54 Temperature 98.7 F Pulse Rate 73 Respiratory Rate 16 Blood Pressure 125/66 Pulse Oximetry 93 Fraction of Inspired Oxygen 21 SaO2/FiO2 Ratio 457 Oxygen Delivery Method Room Air Oxygen Flow Rate 0 Objective Labs 09/22/23 04:18 Labs: Laboratory Results - last 24 hr 09/22/23 04:18 Hgb 12.7 L Hct 37.1 L PFSH Medical History (Updated 09/17/23 @ 12:15 by Veronika Rojas RN) History of COVID-19 (2021) Easy bruisability HLD (hyperlipidemia) Inflammatory arthritis Osteoarthritis Left knee DJD Encounter for preprocedural laboratory examination 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 Cardiac arrhythmia Sacral dysfunction Spondylosis without myelopathy or radiculopathy, lumbosacral region Coronary heart disease Inflammatory bowel disease Heart disease Arthritis Surgical History (Updated 09/17/23 @ 12:10 by Veronika Rojas RN) Hx of arthroscopy of right knee Hx of tonsillectomy Hx of bilateral cataract extraction (~2015) Hx of hernia repair S/P laparoscopic-assisted sigmoidectomy (~2017) History of surgery to heart and great vessels Family History Mother Heart disease Stroke Heart attack Father Heart disease Melanoma Social History household members: spouse Smoking Status: Never smoker alcohol intake: current Quality VTE Deep Vein Thrombosis/Pulmonary Embolism Present on Admission: No
== END 2023-09-22 11:00 | disposition home or self-care (01) ==
LOC: OR 08:53 → AC 08:57
PROVIDERS: Family Provider Family Medicine; PCP Family Medicine; Referring Provider Orthopaedic Surgery Adult Reconstructive Orthopaedic Surgery; Visit Provider Orthopaedic Surgery Adult Reconstructive Orthopaedic Surgery
PROC: 0SRD0JZ Replacement of Left Knee Joint with Synthetic Substitute, Open Approach (ICD-10-PCS; CPT 27447; principal; 2023-09-21 10:45)
DX: M17.12 Unilateral primary osteoarthritis, left knee (principal); I25.10 Atherosclerotic heart disease of native coronary artery without angina pectoris; E78.5 Hyperlipidemia, unspecified
CPT/HCPCS: 27447; 36415; 73560; 85014; 85018; 97116; 97161; C1776; J0136; J0690; J1100; J1170; J2250; J2405; J2704; J3010

== ENCOUNTER → 2024-03-25 14:00 | Outpatient (CLI) | payer MEDICARE, OTHER, SELFPAY ==
[2023-09-21 14:03] VITALS: BMI 22.4
--- NOTE | 2024-03-25 14:33 | EKG_ITS ---
[place] [address] [address] [place] [id number] Test Date: 2024-03-25 Pat Name: Mansoor Teixeira Department: [facility] Room: Gender: Male [employer]: SOLOMON : 1950 Requested By: Order Number: [id number] Reading MD: Tevin Olivera Measurements Intervals [place] Rate: 74 P: 16 VA: 160 QRS: 38 QRSD: 92 T: 54 QT: 374 QTc: 415 Interpretive Statements Sinus rhythm with marked sinus arrhythmia with occasional premature ventricular complexes Electronically Signed On 03-26-2024 8:49:35 PDT by Tevin Olivera
[2024-03-25 14:58] LABS: Add Manual Diff / Slide Review NO; Basophils Absolute Auto 0 /uL (0-100); Basophils Percent Auto 0.4 % (0-2); Eosinophils Absolute Auto 0 /uL (0-450); Eosinophils Percent Auto 0.2 % (2-4); Hematocrit 42.1 % (41-53); Hemoglobin 14.3 g/dL (13.5-17.5); Lymphocytes Absolute Auto 800 /uL (1100-4500); Lymphocytes Percent Auto 11.2 % (25-40); Mean Corpuscular HGB Conc 33.9 % (30-36); Mean Corpuscular Hemoglobin 32.8 PG (26-34); Mean Corpuscular Volume 96.7 fL (80-100); Monocytes Absolute Auto 400 /uL (0-900); Monocytes Percent Auto 5.9 % (3-14); Neutrophils Absolute Auto 5700 /uL (1500-7000); Neutrophils Percent Auto 82.3 % (50-75); Platelet Count 259 X10^3/uL (150-400); Red Blood Cell Count 4.36 X10^6/uL (4.5-5.9); Red Cell Distribution Width 13.8 % (11.6-14.8); White Blood Cell Count 6.9 X10^3/uL (4.5-11.0)
[2024-03-25 15:06] LABS: Hemoglobin A1C% w Est Avg Glu 5.5 % (4.0-6.0)
[2024-03-25 15:22] LABS: Albumin 4.2 g/dL (3.5-5.0); BUN Creatinine Ratio 25.3 (6-22); Blood Urea Nitrogen 19 mg/dL (9-20); Carbon Dioxide 22 mmol/L (22-32); Chloride 102 mmol/L (98-107); Estimated Glomerular Filt Rate > 60 mL/min (>60); Glucose 152 mg/dL (80-110); HEMOLYSIS < 15 (0-50); Potassium 4.2 mmol/L (3.4-5.1); Sodium 133 mmol/L (137-145)
[2024-03-25 15:40] LABS: Vitamin D 25 Hydroxy (D3) 43.3 ng/mL (30.0-100.0)
== END ==
PROVIDERS: Family Provider Family Medicine; PCP Family Medicine; Referring Provider Orthopaedic Surgery Adult Reconstructive Orthopaedic Surgery; Visit Provider Orthopaedic Surgery Adult Reconstructive Orthopaedic Surgery
DX: Z01.818 Encounter for other preprocedural examination (principal); R73.9 Hyperglycemia, unspecified; E55.9 Vitamin D deficiency, unspecified; R77.0 Abnormality of albumin; Z01.812 Encounter for preprocedural laboratory examination
CPT/HCPCS: 36415; 80048; 82040; 82306; 83036; 84134; 85025; 93005

== ENCOUNTER 2024-12-02 10:13 | Outpatient (CLI) | payer MEDICARE, OTHER, SELFPAY ==
[2024-08-13 09:39] VITALS: BMI 22.4
[2024-12-02] VITALS (8 sets, daily range): BP systolic 109–134; BP diastolic 64–78; PULSE 67–73; RESP 13–17; TEMP 36.7; O2SAT 98–100
[2024-12-02] MEDS: MIDAZOLAM 2 MG/2 ML VIAL IV (11:40)
[2024-12-02] MEDS: DEXAMETHASONE 10 MG/ML VIAL INJ (11:42)
[2024-12-02] MEDS: iopamidoL 15 ML VIAL 3 ML INJ (11:42)
[2024-12-02] MEDS: BETAMETHASONE 30 MG/5 ML MDV 12 MG INJ (11:42)
[2024-12-02] MEDS: BUPIVACAINE 0.25% (PF) VIAL 2 ML INJ (11:42)
--- NOTE | 2024-12-02 11:57 | P.PCN_ITS ---
Date/Time/Diagnoses Date of procedure: 12/02/24 Time of procedure: 11:57 Pre-procedure diagnosis: 1. HNP WITH RADICULAR FEATURES, 2. MULTILEVEL CENTRAL STENOSIS, Post-procedure diagnosis: same Procedure Notes Procedure: 1. FLUOROSCOPICALLY GUIDED CONTRAST CONTROLLED INTERLAMINAR EPIDURAL STEROID INJECTION -L4/5 Indications: Mansoor is referred by Dr. Tapia for treatment of Bilateral Foraminal Stenosis R>L LE symptoms. Physician: Nick Fields Total Fluoroscopy time (seconds): 12 Total sedation minutes: 13 Complications: none Procedure in detail & Post-procedure care: FINDINGS Multilevel Central Spinal Stenosis with Nerve Root Compression DESCRIPTION OF PROCEDURE Fluoroscopically guided, contrast-controlled L4/5 translaminar epidural steroid injection. Following review of allergy and review of potential side effects and complications, including, but not necessarily limited to, infection, allergic reaction, local tissue breakdown, temporary as well as permanent nerve injury, paralysis, stroke and possible , the patient indicated that the patient understood and agreed to proceed. An informed consent document was signed by the patient, witnessed by a nurse, and placed in the patient's chart. Additionally, other treatment options including modalities, medications, and physical therapy were reviewed with the patient. After review of previous anaesthesic history and IV conscious sedation the patient was deemed safe to proceed with today?s procedure with IV conscious sedation as ASA class II designation. Safety time-out was performed to confirm patient ID, procedure to be performed and site of procedure. IV sedation was accomplished with a combination of 2mg of Versed was administered by the RN after DO order, titrated to patient comfort during the course of the procedure while the patient remained responsive to all verbal commands In the prone position, following sterile prep and drape of the lumbar region, the L4/5 translaminar space was identified fluoroscopically. The skin was anesthetized via a 25-gauge, 1.5inch needle with 1% lidocaine solution. At this point, a 22-gauge short bevel spinal needle was atraumatically introduced and advanced under fluoroscopic guidance into the region of the L4/5 translaminar space. Depth was confirmed on lateral view. Radiological data, including multiple fluoroscopic views of the lumbar spine, reveal a spinal needle at the L4/5 translaminar space. Lateral views then show placement of the needle in the epidural space. Subsequent views show contrast material flowing superiorly and inferiorly in the epidural space. No vascular or intrathecal uptake is observed. At this point, using loss of resistance technique with saline and air, the epidural space was entered. This was confirmed following negative aspiration with injection of approximately 1.5cc of Isovue 200, showing excellent epidural flow without vascular or intrathecal uptake. At this point, 1cc of 1% lidocaine solution combined with 2cc or 10mg of dexamethasone and 6mg betamethasone was injected without incident. The patient tolerated the procedure well without signs or symptoms of complications prior to transfer to the recovery area continued monitoring without incident. The patient was then transferred to the recovery area where they were observed for an appropriate period of time after the injection. The patient reported a VAS score of 6 prior to the procedure and a post- procedure VAS of 0. POST OP INSTRUCTIONS The patient was provided a Pain Log to continue to record their response to the target-specific procedure prior to follow-up visit with their referring physician. Additionally, specific post-injection care instructions and a contact number to our office were provided if concerns arise regarding possible complications associated with the procedure are suspected.
== END 2024-12-02 12:10 | disposition home or self-care (01) ==
PROVIDERS: Family Provider Family Medicine; PCP Family Medicine; Referring Provider Physical Medicine & Rehabilitation; Visit Provider Physical Medicine & Rehabilitation
DX: M51.16 Intervertebral disc disorders with radiculopathy, lumbar region (principal); M48.061 Spinal stenosis, lumbar region without neurogenic claudication
CPT/HCPCS: 62323; 99152; J0702; J1100; J2250; J3490

== ENCOUNTER → 2025-03-16 09:28 | Outpatient (CLI) | payer MEDICARE, OTHER, SELFPAY ==
[2024-08-13 09:39] VITALS: BMI 22.4
--- NOTE | 2025-03-16 09:30 | DI.RAD.S_ITS ---
PROCEDURE: XR LUMBAR SPINE MIN 4V INDICATIONS: BACK PAIN TECHNIQUE: 5 views of the lumbar spine acquired, including 2 oblique views. COMPARISON: [facility], CR, XR LUMBAR SPINE MIN 4V, 12/29/2021, 10:49. FINDINGS: Bones: 5 nonrib-bearing vertebrae are present. There is normal bony alignment. No vertebral body compression fractures. No suspicious bony lesions. Degenerative disc disease and arthropathy noted in lower lumbar spine. Associated convex right thoracolumbar scoliosis Soft tissues: Overlying bowel gas pattern is normal. No suspicious soft tissue calcifications. Oblique images unremarkable without pars defects IMPRESSION: Degenerative disc disease and arthropathy without change or evidence of pars defect Approved by: Sean Garcia M.D. on 03/16/2025 at 11:08
== END ==
PROVIDERS: Family Provider Family Medicine; PCP Family Medicine; Referring Provider Family Medicine; Visit Provider Surgery
DX: M48.061 Spinal stenosis, lumbar region without neurogenic claudication (principal); M46.96 Unspecified inflammatory spondylopathy, lumbar region; M51.369 Other intervertebral disc degeneration, lumbar region without mention of lumbar back pain or lower extremity pain; M47.816 Spondylosis without myelopathy or radiculopathy, lumbar region
CPT/HCPCS: 72110